=== PATIENT | female | born 1965 | race Hispanic/Latino ===

== ENCOUNTER 2017-02-25 07:30 | Day surgery (SDC) | payer BC ==
[2017-02-22 13:32] VITALS: BMI 27.1
[2017-02-25 09:04] LABS: BASO # 0.03 K/mm3 (0.0-2.0); BASO % 0.5 % (0.0-3.0); EOS # 0.1 (0.0-0.7); EOS % 1.9 % (1.5-5.0); GRAN # 3.32 (1.4-6.5); GRAN % 53.6 % (50.0-68.0); HEMATOCRIT 45.2 % (36.0-48.0); LYMPH # 2.1 (1.2-3.4); LYMPH % 34.1 % (22.0-35.0); MEAN CELL VOLUME 92.1 fl (80.0-105.0); MEAN CORPUSCULAR HGB CONC 33.6 g/dl (31.0-37.0); MEAN PLATELET VOLUME 9.4 fl (7.0-11.0); MONO # 0.6 (0.1-0.6); MONO % 9.9 % (1.0-6.0); RED CELL DISTRIBUTION WIDTH 13.8 % (11.5-14.5); WHITE BLOOD COUNT 6.2 10^3/ul (4.5-11.0)
[2017-02-25 09:08] LABS: BLOOD UREA NITROGEN 11 mg/dL (7-21); CALCIUM 10.3 mg/dL (8.4-10.5); CARBON DIOXIDE 32 mmol/L (21-33); CHLORIDE 102 mmol/L (98-107); CHOLESTEROL 240 mg/dL (130-200); GFR AFRICAN-AMERICAN > 60; GLUCOSE,RANDOM 94 mg/dL (70-110); POTASSIUM 4.4 mmol/L (3.6-5.0); SODIUM 143 mmol/L (132-148)
[2017-02-25 09:52] LABS: INR 0.93 (0.93-1.08); PARTIAL THROMBOPLASTIN TIME 28.4 Seconds (23.7-30.8)
[2017-02-25] MEDS ORDERED: Lidocaine 2% Inj (20ml) ONE (10:46)
[2017-02-25] MEDS ORDERED: Midazolam 2 MG/2 ML VIAL ONE ×2 (10:49→10:59)
[2017-02-25] MEDS ORDERED: Naloxone 0.4 mg/ml Inj (Adult) ONE (11:22)
[2017-02-25] MEDS ORDERED: Sodium Chloride 0.9% 1,000 ML IV SCH (11:45)
[2017-02-25 12:44] VITALS: BP 124/79; PULSE 102; RESP 18; TEMP 97.8; O2SAT 95
--- NOTE | 2017-02-25 16:37 | CARDCATH ---
PROCEDURE DATE: 02/25/2017 HISTORY: The patient is a 51-year-old woman who was found to be in CHF. 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 She was found to have a dilated cardiomyopathy as well as pulmonary hypertension on echocardiogram. Because of this, cardiac catheterization was recommended. PROCEDURE: Right and left heart catheterization with coronary angiography, left ventriculogram with supra-aortic valvular injection. There were no complications. The right femoral artery was cannulated with 6-[place] sheath. The right femoral vein was cannulated with 7-[place] sheath. FINDINGS ON CATHETERIZATION: Included: 1. Initial hemodynamic data which revealed a right atrial pressure of 4 mmHg. 2. Pulmonary artery pressures were 31/5 mmHg. 3. Pulmonary artery pressures were 28/14 mmHg with a mean of 18 mmHg, mean pulmonary capillary wedge pressure was 11 mmHg. Angiographic studies included supraaortic valvular injection which revealed 1+ aortic insufficiency. The left ventricle was found to be dilated and diffusely hypokinetic with an EF of approximately 20%. Her coronary anatomy revealed left main artery that was unremarkable. The LAD revealed mild intimal irregularities with a distal portion that was intramyocardial. Diagonal vessels revealed intimal irregularities without significant stenosis. The circumflex artery revealed diffuse intimal irregularities without critical lesions. The right coronary artery selectively cannulized and found to be a dominant vessel. The RCA revealed intimal irregularities with a 40% stenosis in the proximal portion. Angio-Seal was used to close the femoral artery site. The patient tolerated the procedure well. In summary, the procedure revealed: 1. A dilated cardiomyopathy with an EF of 20%. 2. 1+ aortic insufficiency. 3. Mild pulmonary retention. 4. Nonobstructive CAD with intramyocardial portion of the distal LAD noted. Given these findings, the patient's treatment will be BRIDGETTE inhibitors, beta blockers, diuretics as needed. We will discussed with the patient about risks and benefits of a possible intramyocardial biopsy. Shakir Aguilar MD
--- NOTE | 2017-02-26 09:44 | CARD ---
APPROVED REPORT EKG Measurement Heart [id number] [place] [id number] <Conclusion> Normal sinus rhythm Minimal voltage criteria for LVH, may be normal variant Nonspecific T wave abnormality Abnormal ECG
== END 2017-02-25 13:19 | disposition short-term general hospital (02) ==
LOC: CATH 07:30
PROVIDERS: ATTEND Internal Medicine Cardiovascular Disease
DX: I42.0 Dilated cardiomyopathy (principal); I27.21 Secondary pulmonary arterial hypertension; I50.9 Heart failure, unspecified; I35.1 Nonrheumatic aortic (valve) insufficiency; I25.10 Atherosclerotic heart disease of native coronary artery without angina pectoris
CPT/HCPCS: 36415; 80048; 80061; 85025; 85610; 85730; 86850; 86900; 93005; 93460; 99152; C1760; C1769; C1894; C2629; J1644; J2250; J2310; J3010; J7040 ×2

== ENCOUNTER 2017-02-25 13:19 | Inpatient (IN) | payer BC ==
[2017-02-25 13:22] VITALS: BMI 27.1
[2017-02-25] MEDS ORDERED: DOBUTamine 500mg/250ml D5W 500 MG/250 ML BAG IV PRN ×2 (13:31→17:02)
--- NOTE | 2017-02-25 13:48 | ED PDOC ---
Arrival/HPI - General Chief Complaint: Shortness Of Breath Time Seen by Provider: 02/25/17 13:30 Historian: Patient - History of Present Illness Narrative History of Present Illness (Text): 02/25/17 13:58 A 51 year old female was sent to the emergency department by Dr. Aguilar after catheterization lab for admission to be on Dobutamine drip. Dr. Aguilar called and asked to place patient on Dobutamine drip 5 mcg/kg/min. Patient reports she has dyspnea on exertion for a long time. Patient states she has cardiomyopathy, likely secondary to chemotherapy treatments. Patient denies any other complaints at this time. Time/Duration: Prior to Arrival Symptom Onset: Sudden Symptom Course: Unchanged Modifying Factors (Text): none Past Medical History - Provider Review Nursing Documentation Reviewed: Yes - Infectious Disease Hx of Infectious Diseases: None - Tetanus Immunization Tetanus Immunization: Unknown - Cardiac Hx Pacemaker: No - Pulmonary Hx Respiratory Disorders: Yes Hx Pneumonia: Yes (09-16-14) - Neurological Hx Paralysis: No - HEENT Hx HEENT Disorder: (WEARS RX GLASSES FOR READING) - Renal Hx Renal Disorder: No - Endocrine/Metabolic Hx Endocrine Disorders: No - Hematological/Oncological Hx Blood Transfusions: Yes Hx Blood Transfusion Reaction: No - Integumentary Hx Dermatological Disorder: No - Musculoskeletal/Rheumatological Hx Musculoskeletal Disorders: No - Gastrointestinal Hx Gastrointestinal Disorders: Yes (constipation) - Genitourinary/Gynecological Hx Genitourinary Disorders: Yes - Psychiatric Hx Emotional Abuse: No Hx Physical Abuse: No Hx Substance Use: No - Past Surgical History Past Surgical History: Non-Contributing - Surgical History Hx Cardiac Catheterization: Yes (02/25/2017) Other/Comment: R chest port - Anesthesia Hx Anesthesia: Yes Hx Anesthesia Reactions: No Hx Malignant Hyperthermia: No - Suicidal Assessment Feels Threatened In Home Enviroment: No Family/Social History - Physician Review Nursing Documentation Reviewed: Yes Family/Social History: No Known Family HX Smoking Status: Former Smoker Hx Alcohol Use: Yes (SOCIALLY) Hx Substance Use: No Allergies/Home Meds Allergies/Adverse Reactions: Allergies sulfamethoxazole [From Bactrim] Allergy (Severe, Verified 02/22/17 13:33) RASH trimethoprim [From Bactrim] Allergy (Severe, Verified 02/22/17 13:33) RASH Home Medications: Home Meds Medication Instructions Recorded Confirmed Aspirin [Ecotrin] 81 mg PO DAILY 02/22/17 02/25/17 Gabapentin [Neurontin] 600 mg PO QPM 02/22/17 02/25/17 Review of Systems - Physician Review All systems were reviewed & negative as marked: Yes Physical Exam - Physical Exam Narrative Physical Exam (Text): 02/25/17 13:40 - Review of Systems Constitutional: Normal. absent: Fatigue, Weight Change, Fevers Eyes: Normal ENT: denies sore throat, denies tristhmus Respiratory: Normal. absent: SOB, Cough, Sputum Cardiovascular: dyspnea on exertion absent: Chest Pain, Palpitations, Syncope Gastrointestinal: Normal. absent: Abdominal Pain, Diarrhea, Nausea, Vomiting Genitourinary: Normal. absent: Dysuria, Frequency, Hematuria Musculoskeletal: Normal. absent: Arthralgias, Back Pain, Neck Pain Skin: no rashes, no erythema Neurological: absent: Focal Weakness Endocrine: Normal Hemo/Lymphatic: Normal Psychiatric: No suicidal or homicidal ideations Physical exam Patient appears age appropriate in no distress, speaking full sentences without difficulty - Systems Exam Head: Present: Atraumatic, Normocephalic Pupils: Present: PERRL Extroacular Muscles: Present: EOMI Conjunctiva: Present: Normal Mouth: Present: Moist Mucous Membranes Neck: Present: Normal Range of Motion. No: MIDLINE TENDERNESS, Paraspinal Tenderness Respiratory/Chest: Present: Clear to Auscultation, Good Air Exchange. No: Respiratory Distress, Accessory Muscle Use, Tachypneic Cardiovascular: Present: Regular Rate and Rhythm, Normal S1, S2, Peripheal Pulses Present. No: Murmurs Abdomen: Present: Normal Bowel Sounds. No: Tenderness, Distention, Peritoneal Signs, Rebound, Guarding Back: Present: Normal Inspection. No: Midline Tenderness, Paraspinal Tenderness Upper Extremity: Present: Normal Inspection. No: Cyanosis, Edema Lower Extremity: Present: Normal Inspection. No: Edema Neurological: Present: GCS=15, Speech Normal, cranial nerves II through XII fully intact with no cerebellar abnormality, neurosensory fully intact. No focal neurological deficits. Skin: Present: Warm, Dry, Normal Color. No: Rashes Lymphatic: Present: OX3, NI, NC Psychiatric: Present: Alert, Oriented x 3, Normal Insight, Normal Concentration Vital Signs Reviewed: Yes Vital Signs Temp Pulse Resp BP Pulse Ox 02/25/17 17:15 112 H 18 88/62 L 95 02/25/17 16:40 116 H 17 83/47 L 97 02/25/17 14:07 17 98 02/25/17 14:06 105 H 111/73 02/25/17 13:39 98.4 F 116 H 24 106/89 97 Temperature: Afebrile Blood Pressure: Normal Pulse: Tachycardic Respiratory Rate: Normal Appearance: Positive for: Well-Appearing, Non-Toxic, Comfortable Pain Distress: None Mental Status: Positive for: Alert and Oriented X 3 Medical Decision Making ED Course and Treatment: 02/25/17 13:40 Impression: A 51 year old female with dyspnea on exertion. Plan: -- chest xray -- labs -- Dobutamine -- Reassess and disposition Prior Visits: Notes and results from previous visits were reviewed. Patient was last seen in the emergency department on 09/16/14 for evaluation of cough, fever, chills and nasal congestion. Progress Notes: Case discussed with patient's primary Dr. Campos, who asked to admit to Dr. Aguilar or Dr. Aguilar's service. 02/25/17 14:[address] Aguilar in detail, accepted admission to her service. Patient is aware and in agreement with plan to be admitted to hospital. 02/25/17 15:35 Patients blood pressure decreased, pt on Dobutamine. Case discussed with Dr. Aguilar, who states to start patient on 200 cc boluses normal saline. 02/25/17 17:05 600ml NS given total. pt's lungs clear to ausc and pt denies complaints gerald Aguilar again, states to place pt on dopamine drip as well, and to admit to the MICU 02/25/17 17:08 gerald Bui in detail, states he will see pt 02/25/17 17:52 seen by apparel trimmings sales representative, accepted to the MICU pt aware of and agrees with plan denies complaints at this time - Lab Interpretations I have reviewed the lab results: Yes - RAD Interpretation Radiology Orders: 02/25/17 13:31 CHEST PORTABLE [RAD] Stat - Medication Orders Current Medication Orders: Dopamine HCl 800 mg/ Dextrose 270 mls @ 2.9 mls/hr IV .Q24H PRN; Protocol; 2 MCG/KG/MIN PRN Reason: TITRATE PER MD ORDER Last Admin: 02/25/17 17:33 Dose: 2 mcg/kg/min, 2.9 mls/hr Dobutamine HCl/Dextrose (Dobutamine/Dextrose 5% 500mg/250ml) 500 mg in 250 mls @ 10.751 mls/hr IV .[id number] PRN; Protocol; 5 MCG/KG/MIN PRN Reason: TITRATE PER PROTOCOL Discontinued Medications Dobutamine HCl/Dextrose (Dobutamine/Dextrose 5% 500mg/250ml) 500 mg in 250 mls @ 10.751 mls/hr IV .[id number] PRN; Protocol; 5 MCG/KG/MIN PRN Reason: TITRATE PER PROTOCOL Last Admin: 02/25/17 14:06 Dose: 10.751 mls/hr eMAR Start Stop Document 02/25/17 14:06 MR (Rec: 02/25/17 14:07 [id number]) Intravenous Solution Start Date 02/25/17 Start Time 14:06 MAR Pulse and Blood Pressure Document 02/25/17 14:06 MR (Rec: 02/25/17 14:07 [id number]) Pulse Pulse Rate (60-90 beats/min) 105 Blood Pressure Blood Pressure (100/60-150/90 mm Hg) 111/73 Sodium Chloride (Sodium Chloride 0.9%) 200 mls @ 1,000 mls/hr IV .Q12M STA Stop: 02/25/17 15:45 Last Admin: 02/25/17 16:00 Dose: 1,000 mls/hr eMAR Start Stop Document 02/25/17 16:00 MR (Rec: 02/25/17 16:31 [id number]) Intravenous Solution Start Date 02/25/17 Start Time 16:00 End Date 02/25/17 End time 16:12 Total Infusion Time 12 - Scribe Statement The provider has reviewed the documentation as recorded by the Edy lFynn Provider Scribe Attestation: All medical record entries made by the Scribe were at my direction and personally dictated by me. I have reviewed the chart and agree that the record accurately reflects my personal performance of the history, physical exam, medical decision making, and the department course for this patient. I have also personally directed, reviewed, and agree with the discharge instructions and disposition. Disposition/Present on Arrival - Present on Arrival Any Indicators Present on Arrival: No History of DVT/PE: No History of Uncontrolled Diabetes: No Urinary Catheter: No History of Decub. Ulcer: No History Surgical Site Infection Following: None - Disposition Have Diagnosis and Disposition been Completed?: Yes Diagnosis: Dyspnea Disposition: HOSPITALIZED Disposition Time: 13:47 Patient Plan: Admission Patient Problems: Current Active Problems Problem Status Onset Dyspnea Acute Condition: FAIR
--- NOTE | 2017-02-25 15:08 | RAD ---
HISTORY: cp COMPARISON: 03/14/2015 FINDINGS: LUNGS: There is moderate to severe vascular congestion PLEURA: No significant pleural effusion identified, no pneumothorax apparent. CARDIOVASCULAR: Normal. OSSEOUS STRUCTURES: No significant abnormalities. VISUALIZED UPPER ABDOMEN: Normal. OTHER FINDINGS: None. IMPRESSION: Moderate to severe vascular congestion
[2017-02-25] MEDS ORDERED: Sodium Chloride 0.9% 200 ML IV STA (15:34)
--- NOTE | 2017-02-25 18:25 | CP.PCM.CON ---
History of Present Illness - History of Present Illness History of Present Illness: CRITICAL CARE PROGRESS NOTE HPI: Patient is 51yo female with PMhx of Hodgkins Lymphoma, diagnosed 2010, on chemo therapy, subsequently BMT 2011, only on Neurontin, ASA at home presented to Dr Woodward office with complaints of progressive SOB for the last 1-2 weeks, worsened on exertion. Pt denies fever, chills, cough, chest pain, palpitations, LE edema, orthopnea, LAZO, dizziness. PAtient reportd dyspnea on exertion, limited to 1-2 blocks of ambulation. No oher constitutional symptoms. Cardiac cath, Left and Right, done this morning, which showed normal coronaries , EF 15-20%, PCWP 11, elevated right sided pressures. Patient sent to the ER after cardiac cath for dobutamine drip. Currently on Dobutamine at 4.5mcg/kg/min , SBP ranging 80-95, HR 110s sinus. PMHx: Hodgkins Lymphoma, s/p BMT 2011 PSHx: as above Allergies: NKDA Meds: as per EMR FHx: Father-CHF, at age 91 ROS: as above Review of Systems - Review of Systems Review of Systems: as per HPI Past Patient History - Infectious Disease Hx of Infectious Diseases: None - Tetanus Immunizations Tetanus Immunization: Unknown - Past Social History Smoking Status: Former Smoker - CARDIAC Hx Pacemaker: No - PULMONARY Hx Respiratory Disorders: Yes Hx Pneumonia: Yes (09-16-14) - NEUROLOGICAL Hx Paralysis: No - HEENT Hx HEENT Problems: (WEARS RX GLASSES FOR READING) - RENAL Hx Chronic Kidney Disease: No - ENDOCRINE/METABOLIC Hx Endocrine Disorders: No - HEMATOLOGICAL/ONCOLOGICAL Hx Blood Transfusions: Yes Hx Blood Transfusion Reaction: No - INTEGUMENTARY Hx Dermatological Problems: No - MUSCULOSKELETAL/RHEUMATOLOGICAL Hx Musculoskeletal Disorders: No - GASTROINTESTINAL Hx Gastrointestinal Disorders: Yes (constipation) - GENITOURINARY/GYNECOLOGICAL Hx Genitourinary Disorders: Yes - PSYCHIATRIC Hx Emotional Abuse: No Hx Physical Abuse: No Hx Substance Use: No - SURGICAL HISTORY Hx Cardiac Catheterization: Yes (02/25/2017) Other/Comment: R chest port - ANESTHESIA Hx Anesthesia: Yes Hx Anesthesia Reactions: No Hx Malignant Hyperthermia: No Meds Allergies/Adverse Reactions: Allergies Allergy/AdvReac Type Severity Reaction Status Date / Time sulfamethoxazole Allergy Severe RASH Verified 02/22/17 13:33 [From Bactrim] trimethoprim [From Bactrim] Allergy Severe RASH Verified 02/22/17 13:33 - Medications Medications: Current Medications Dopamine HCl 800 mg/ Dextrose 270 mls @ 2.9 mls/hr IV .Q24H PRN; Protocol; 2 MCG/KG/MIN PRN Reason: TITRATE PER MD ORDER Last Admin: 02/25/17 17:33 Dose: 2 mcg/kg/min, 2.9 mls/hr Dobutamine HCl/Dextrose (Dobutamine/Dextrose 5% 500mg/250ml) 500 mg in 250 mls @ 10.751 mls/hr IV .[id number] PRN; Protocol; 5 MCG/KG/MIN PRN Reason: TITRATE PER PROTOCOL Physical Exam - Constitutional Appears: Well, Non-toxic - Head Exam Head Exam: ATRAUMATIC - Eye Exam Eye Exam: EOMI, Normal appearance - ENT Exam ENT Exam: Mucous Membranes Moist - Neck Exam Neck exam: Positive for: Normal Inspection - Respiratory Exam Respiratory Exam: NORMAL BREATHING PATTERN Additional comments: bibasilar crackles - Cardiovascular Exam Cardiovascular Exam: Tachycardia, REGULAR RHYTHM, JVD, +S1, +S2 - GI/Abdominal Exam GI & Abdominal Exam: Normal Bowel Sounds, Soft - Extremities Exam Extremities exam: Positive for: normal inspection - Neurological Exam Neurological exam: Alert, CN II-XII Intact, Oriented x3 - Psychiatric Exam Psychiatric exam: Anxious - Skin Skin Exam: Normal Color Results - Vital Signs Recent Vital Signs: Last Vital Signs Temp 98.4 F 02/25/17 13:39 Pulse 112 H 02/25/17 17:15 Resp 18 02/25/17 17:15 BP 88/62 L 02/25/17 17:15 Pulse Ox 95 02/25/17 17:15 - EKG Data EKG Interpreted by: Myself - Imaging and Cardiology Chest x-ray Status: Image reviewed by me, Report reviewed by me Assessment & Plan - Assessment and Plan (Free Text) Assessment: 51yo female Hx of Hodgkins Lymphoma, s/p BMT 2011 a/w shock Shock, likely cardiogenic CHF, EF 15-20% History of Hodgkins Lymphoma, s/p BMT 2011 - currently afebrile, SBP ranging 80-90s on Dobutamine 5mcg/kg/min, HR 110s, sinus, AAOx3, NAD, comfortable sitting in bed, with no complaints - on exam has bibasilar crackles, with mild JVD - EKG: NSR, with Qwaves in anterior leads, LVH - ECHO done on 02/22/17, with EF 15-20% - pre-cardiac cath labs done today, unremarkable - s/p cardiac cath today, which showed non-obstructive coronaries, LV dilated, hypokinetic, EF 15-20% Recommend: - cont with supp o2 as needed - cuevas culture, including urine culture, blood culture, sputum culture - would hold off antibiotics for now, wbc wnl, afebrile, no focal consolidation on CXR, UA pending, denies n/v/d - cont with Dobutamine drip, titrate to MAP 65, may need to add second vasopressor - repeat all labs, including CBC, BMP, Lactate - check Ddimer, and LE duplex - repeat bedside ECHO - monitor HH - low salt diet - GI ppx - DVT ppx critical care time: 40 minutes
[2017-02-25] MEDS ORDERED: NOREPINEPHRINE BIT/0.9 % NACL 4 MG/250 ML BAG IV ONE (18:46)
[2017-02-25] MEDS: DOBUTamine 500mg/250ml D5W 500 MG/250 ML BAG IV PRN (19:00)
--- NOTE | 2017-02-25 20:15 | HP ---
HISTORY OF PRESENT ILLNESS: The patient is a 51 years old known to me from office practice. She was feeling weak, dizzy, and shortness of breath. She went to see Dr. Campos, who has been her oncologist for last 30 years, who felt that her heart has to be checked. He referred her to Dr. Aguilar, who saw the patient last week and scheduled her for cardiac cath since she has poor ejection fraction upon echocardiogram. So, the patient was brought to produce laborer, had cardiac cath done. According to Dr. Aguilar, her coronaries are clear; however, she has poor LV function and need Milrinone drip, so she was admitted for further management. Unfortunately, this 51 years old pleasant female, but she was diagnosed in 2010 with Hodgkin's lymphoma. She received physical therapy and she has bone marrow transplant in 2011. She also carried diagnosis of positive hepatitis C and recently she finished course of treatment with in [place] for hepatitis C. The patient states she does not have any fever or chills. No chest pain. Does complain of feeling weak, tired, short of breath, and feeling dizzy. She can hardly walk to block and half and get short of breath. ALLERGIES: SHE IS ALLERGIC TO [employer]. MEDICATION AT HOME: She is on Neurontin 600 at nighttime, aspirin 81 daily. FAMILY HISTORY: Significant for mother having anxiety disorder, COPD, and pulmonary hypertension. Father of congestive heart failure. SOCIAL HISTORY: She recently got . She has one son, who lives with her. She social drinks here there. She used to be heavy smoker, quit in 2011 and she still smokes occasionally when she is very anxious. REVIEW OF SYSTEMS: Significant for being tired, short of breath. PHYSICAL EXAMINATION: GENERAL: She is awake, alert, oriented, communicative. VITAL SIGNS: She is afebrile, pulse 160, respirations 24, blood pressure 106/89. LUNGS: Bilateral fair airflow, decreased at bases. HEART: S1 and S2 audible. ABDOMEN: Soft, nontender. No rebound. No guarding. NEUROLOGIC: She is awake and alert; able to communicate. Moves all extremities. LABORATORY EXAM: Has been ordered for tomorrow morning. ASSESSMENT AND PLAN: 1. Dilated cardiomyopathy, etiology unclear, probably secondary to chemo and radiation, I cannot rule out viral etiology. 2. History of lymphoma. 3. Neuropathy. 4. Anxiety disorder. PLAN: The patient has been started on dobutamine drip. She will be started on aspirin 81 daily, gabapentin 600 at nighttime, add Xanax. We will follow up her electrolyte. Dr. Shakir Aguilar and Dr. Campos has been consulted. Kelly Aguilar MD
[2017-02-25 20:24] LABS: BASO # 0.01 K/mm3 (0.0-2.0); BASO % 0.2 % (0.0-3.0); EOS # 0.1 (0.0-0.7); GRAN # 3.14 (1.4-6.5); HEMATOCRIT 38.9 % (36.0-48.0); LYMPH # 2.5 (1.2-3.4); LYMPH % 40.3 % (22.0-35.0); MEAN CELL VOLUME 91.7 fl (80.0-105.0); MEAN CORPUSCULAR HEMOGLOBIN 30.9 pg (25.0-35.0); MEAN CORPUSCULAR HGB CONC 33.7 g/dl (31.0-37.0); MEAN PLATELET VOLUME 9.4 fl (7.0-11.0); MONO # 0.5 (0.1-0.6); MONO % 8.5 % (1.0-6.0); RED CELL DISTRIBUTION WIDTH 13.8 % (11.5-14.5); WHITE BLOOD COUNT 6.3 10^3/ul (4.5-11.0)
[2017-02-25 20:40] LABS: ALB/GLOB RATIO 1.3 (1.1-1.8); ALKALINE PHOSPHATASE 89 U/L (38-126); ALT/SGPT 30 U/L (7-56); AST/SGOT 30 U/L (14-36); BILIRUBIN,TOTAL 0.6 mg/dL (0.2-1.3); BLOOD UREA NITROGEN 11 mg/dL (7-21); CARBON DIOXIDE 28 mmol/L (21-33); CHLORIDE 102 mmol/L (98-107); GFR AFRICAN-AMERICAN > 60; GLUCOSE,RANDOM 145 mg/dL (70-110); MAGNESIUM 1.8 mg/dL (1.7-2.2); PHOSPHOROUS 4.4 mg/dL (2.5-4.5); POTASSIUM 3.5 mmol/L (3.6-5.0); SODIUM 139 mmol/L (132-148); TOTAL PROTEIN 6.1 g/dL (5.8-8.3)
[2017-02-25] MEDS ORDERED: POLYETHYLENE GLYCOL 3350 17 GM/Dose PACKET PO ONE (23:00)
[2017-02-26] MEDS ORDERED: NOREPINEPHRINE BIT/0.9 % NACL 4 MG/250 ML BAG IV PRN (00:21)
[2017-02-26 06:25] LABS: BASO # 0.01 K/mm3 (0.0-2.0); BASO % 0.1 % (0.0-3.0); EOS # 0.1 (0.0-0.7); EOS % 0.8 % (1.5-5.0); GRAN # 3.45 (1.4-6.5); GRAN % 46.2 % (50.0-68.0); HEMATOCRIT 36.1 % (36.0-48.0); LYMPH % 40.8 % (22.0-35.0); MEAN CELL VOLUME 93.3 fl (80.0-105.0); MEAN CORPUSCULAR HEMOGLOBIN 30.5 pg (25.0-35.0); MEAN CORPUSCULAR HGB CONC 32.7 g/dl (31.0-37.0); MEAN PLATELET VOLUME 9.5 fl (7.0-11.0); MONO # 0.9 (0.1-0.6); MONO % 12.1 % (1.0-6.0); RED CELL DISTRIBUTION WIDTH 14.1 % (11.5-14.5); WHITE BLOOD COUNT 7.5 10^3/ul (4.5-11.0)
[2017-02-26 07:12] LABS: ALB/GLOB RATIO 1.1 (1.1-1.8); ALKALINE PHOSPHATASE 84 U/L (38-126); ALT/SGPT 23 U/L (7-56); AST/SGOT 28 U/L (14-36); BILIRUBIN,TOTAL 0.5 mg/dL (0.2-1.3); BLOOD UREA NITROGEN 13 mg/dL (7-21); CALCIUM 8.5 mg/dL (8.4-10.5); CARBON DIOXIDE 29 mmol/L (21-33); CHLORIDE 105 mmol/L (98-107); GFR AFRICAN-AMERICAN > 60; GLUCOSE,RANDOM 100 mg/dL (70-110); MAGNESIUM 1.9 mg/dL (1.7-2.2); PHOSPHOROUS 4.5 mg/dL (2.5-4.5); POTASSIUM 4.1 mmol/L (3.6-5.0); SODIUM 140 mmol/L (132-148); TOTAL PROTEIN 5.8 g/dL (5.8-8.3)
--- NOTE | 2017-02-26 09:44 | CARD ---
APPROVED REPORT EKG Measurement Heart [id number] [place] [id number] <Conclusion> Sinus tachycardia Minimal voltage criteria for LVH, may be normal variant Cannot rule out Anterior infarct, age undetermined T wave abnormality, consider lateral ischemia Abnormal ECG
--- NOTE | 2017-02-26 09:49 | US ---
HISTORY: Leg pain and swelling. Evaluate for DVT PHYSICIAN(S): Shakir Erwin MD. TECHNIQUE: Duplex sonography and color-flow Doppler with graded compression were used to evaluate the deep venous systems of both lower extremities. FINDINGS: The visualized deep venous systems of both lower extremities are sonographically normal and compressible. Normal wave forms and augmentation are seen. There is no sonographic evidence for deep venous thrombosis in the visualized segments of both lower extremities. IMPRESSION: No sonographic evidence for deep venous thrombosis in the visualized segments of both lower extremities.
[2017-02-26] MEDS: POLYETHYLENE GLYCOL 3350 17 GM/Dose PACKET PO SCH (12:01)
--- NOTE | 2017-02-26 12:12 | PN ---
DATE: 02/26/2017 SUBJECTIVE: The patient is seen and examined at bedside. She is comfortable. She talks full sentences. She is not in respiratory or otherwise distress. She reports that at baseline her blood pressure is low around 80s. She is currently on norepinephrine 5 mcg/kg/minute and dobutamine 5 mcg/kg/minute. PHYSICAL EXAMINATION: VITAL SIGNS: Heart rate 116, blood pressure 85/49, respiratory rate 16, oxygen saturation 97 on room air. HEENT: Head and neck atraumatic. LUNGS: Clear to auscultation bilaterally. Decreased breath sounds, right more than left (on left-sided ultrasound there is a moderate pleural effusion present). HEART: Regular rate and rhythm. S1 and S2 normal. ABDOMEN: Soft, nontender, nondistended. MUSCULOSKELETAL: Trace bilateral pedal and ankle edema. NEUROLOGIC: The patient moves all extremities spontaneously. SKIN: Moist. PSYCHIATRIC: The patient is alert and oriented x3. LABORATORY DATA: Sodium 140, potassium 4.1, chloride 105, carbon dioxide 49, BUN 13, creatinine 0.8, glucose 100, lactic acid 1, AST 28, ALT 23, albumin 3.1. WBC 7.5, hemoglobin 11.8, platelet count 120. D-dimer 2.64 (right ventriculography was done; however, now mentioning of pulmonary embolism was made in the report and in the cardiology sign out. Venous Doppler of the lower extremities is pending. MEDICATIONS: Xanax, aspirin, dobutamine, Lasix 20 mg IV daily, Neurontin, norepinephrine, MiraLax. ASSESSMENT AND PLAN: This is a 51-year-old lady who was admitted to ICU with acute heart failure with biventricular involvement. The patient does have right ventricular failure secondary to left ventricular failure with LV ejection fraction of 15-20%. She currently is on dobutamine and norepinephrine. I will be careful with fluid and would avoid IV fluid at the present time, in fact I would continue with diuresis. The patient is afebrile and does not have leukocytosis. She looks fairly comfortable. I would avoid empiric antibiotics and leave septic workup up to the discretion of the primary medical doctor. The bigger question that I will discuss with cardiology whether or not the patient would be a candidate for cardiac transplant evaluation. Etiology of biventricular failure may or may not be related to remote exposure to chemotherapy and radiation therapy for her Hodgkin's lymphoma. We will continue to target euvolemia, euglycemia, normothermia and oxygen saturation more than 90%. Continue with conservative fluid management and the patient is on Lasix 20 mg IV daily. Even though, there is a moderate pleural effusion on the right side, the patient is not in respiratory distress and does not have overt gas exchange abnormalities. Thus, I would avoid thoracentesis at present time and proceed with diuresis only at this time. We will continue with deep venous thrombosis and gastrointestinal prophylaxis. Addendum: Discussed with Dr. Campos (Hem/Onc)-->PET scan done 3 months ago, only faint uptake in mediastinal area, which was doubtful for recurrent lymphoma. If pleural effuison wont resolve with diuresis soon, would consider thoracenthesis for both theraeutic and diagnostic purposes (CHF vs lymphoma). Discussed case with Dr. Aguilar--once a bit more stable, patient will be referred for eval for candidacy for heart transplant. Levophed is off, BP 89/39--patient reports that this is her baseline BP, dobutamine is still going ccm time 40 min Reynaldo Painting MD MTDDelia
[2017-02-26] MEDS: DOBUTamine 500mg/250ml D5W 500 MG/250 ML BAG IV PRN (12:31)
--- NOTE | 2017-02-26 12:55 | PN ---
DATE: SUBJECTIVE: The patient is a 51 years old. Seen and examined, sitting in the chair. Very worried and anxious about her new situation and had lot of questions that were answered and states she feels okay now, but feels weak and dizzy when she walks. PHYSICAL EXAMINATION: VITAL SIGNS: She is afebrile. Pulse 116, respirations 20, and blood pressure 93/66. LUNGS: Bilateral fair airflow, decreased at bases. HEART: S1 and S2 audible. ABDOMEN: Soft, nontender. No rebound. No guarding. NEUROLOGICAL: The patient is awake, alert, and communicative. LABORATORY DATA: WBC 7.5, hemoglobin 11.8, hematocrit 36, and platelet of 120. D-dimer 2.6. Chemistry sodium 140, potassium 4.1, chloride 105, CO2 29, BUN 13, and creatinine 0.8. Blood sugar of 100. BNP is 2220. Bilateral leg Doppler is negative for DVT. ASSESSMENT: 1. Cardiomyopathy with poor left ventricular function and ejection fraction of 15% to 20%. 2. History of lymphoma and bone marrow transplant. 3. History of hepatitis C status post antiviral treatment that she just finished two weeks ago. PLAN: The patient is currently on dobutamine and/or epinephrine. Continue her on aspirin. She is on DVT prophylaxis. She is getting IV diuretics and increased her Xanax to 0.25 mg twice a day scheduled and should be p.r.n. Followup for electrolyte and reevaluate. Kelly Aguilar MD
[2017-02-26] MEDS: Digoxin 250 mcg (0.25 mg) Tab PO SCH (14:19)
[2017-02-26] MEDS ORDERED: Docusate-Senna 50 mg-8.6 mg Tab PO ONE (21:35)
--- NOTE | 2017-02-26 21:35 | CON ---
DATE: 02/26/2017 HISTORY OF PRESENT ILLNESS: The patient is a 51-year-old woman who presents with 1 week of shortness of breath. She is found to have a severe dilated cardiomyopathy. Catheterization yesterday revealed a nonobstructive CAD. The etiology of her cardiomyopathy is still unclear. The patient was placed on IV dobutamine given her marked dyspnea and CHF symptoms. She is currently in the unit. Her symptoms are better. PAST MEDICAL HISTORY: Includes history of Hodgkin's disease x2. She was also recently treated for hepatitis C over the course of the month. SOCIAL HISTORY: The patient does not smoke. REVIEW OF SYSTEMS: A 14-point review of systems is reviewed in detail. Her CHF symptoms are much improved. PHYSICAL EXAMINATION: VITAL SIGNS: Blood pressure 100 systolic, heart rate is 100-110, sinus tachycardia. NECK: Negative JVD. LUNGS: Without rales. HEART: S1, S2. EXTREMITIES: Without edema. LABORATORY DATA: Hemoglobin is 11.8. Chemistries, BUN and creatinine unremarkable. The ProBNP is 2220. IMPRESSION 1. Improvement of congestive heart failure on IV dobutamine. 2. Dilated cardiomyopathy. 3. Improvement of dyspnea. 4. History of hepatitis C 5. History of Hodgkin disease. Given these findings, we will continue her on IV dobutamine for 24 hours. If the patient is stable, we will discontinue the dobutamine. I have discussed this with the heart failure program at [facility]. We will send her there for an MRI to evaluate her cardiomyopathy. There is potential for myocardial biopsy to rule out fulminant viral myocarditis. Shakir Aguilar MD
--- NOTE | 2017-02-27 01:10 | CARD ---
APPROVED REPORT EKG Measurement Heart [id number] <Conclusion> Sinus tachycardia Minimal voltage criteria for LVH, may be normal variant Nonspecific T wave abnormality Abnormal ECG
--- NOTE | 2017-02-27 07:48 | CP.PCM.CON ---
History of Present Illness - History of Present Illness History of Present Illness: Heme/Onc Consult Note for Dr. Campos's service HPI: Patient is 51yo female with past medical history of Hodgkins Lymphoma first treated in 1986 with radiation for mediastinal disease and systemic ABVD chemotherapy for six cycles. Following recurrence of her Hodgkins in 1991 she was treated with chemotherapy and autologous BMT. She was well until 2011 when she again had recurrence of her Hodgkins and underwent radiaton as well as allogeneic transplant. Patient had originally reported to Dr. Campos's office complaining of dyspnea on exertion that was effecting her ADL's. She was referred to cardiology, Dr. Aguilar who had ordered an echocardiogram revealing severe LV dysfunction (EF 15-20%) and performed a right and left cardiac catherization which revealed normal coronaries, EF 15-20%, PCWP 11, elevated right sided pressures. She was subsequently sent to the ER after cardiac cath for dobutamine drip. Denies chest pain, palpitations, SOB, abdominal pain, nausea, vomiting. 12point ROS as per HPI above otherwise negative PMHx: Hodgkins Lymphoma, Hepatitis C, Hx of Cdiff PSHx: as stated above Allergies: NKDA Medications: Reviewed and as per chart Family Hx: Father: CHF, at age 91 Social Hx: Former smoker, denies alcohol and illicit drug use Past Patient History - Infectious Disease Hx of Infectious Diseases: None - Tetanus Immunizations Tetanus Immunization: Unknown - Past Social History Smoking Status: Current Some Days Smoker - CARDIAC Hx Pacemaker: No - PULMONARY Hx Respiratory Disorders: Yes Hx Pneumonia: Yes (09-16-14) - NEUROLOGICAL Hx Neurological Disorder: No - HEENT Hx HEENT Problems: (WEARS RX GLASSES FOR READING) - RENAL Hx Chronic Kidney Disease: No - ENDOCRINE/METABOLIC Hx Endocrine Disorders: No - HEMATOLOGICAL/ONCOLOGICAL Hx Blood Disorders: Yes Hx Anemia: Yes (blood transfusion) Hx Cancer: Yes (hodgkin's lymphoma reoccurring for 24 yrs dx 1988) Hx Chemotherapy: Yes (chemo and radiation last given 03/2012) Hx Hepatitis C: Yes Other/Comment: hodgkins lymphoma has recurred 4 times since being dx in 1988 - INTEGUMENTARY Hx Dermatological Problems: No - MUSCULOSKELETAL/RHEUMATOLOGICAL Hx Falls: No - GASTROINTESTINAL Hx Gastrointestinal Disorders: Yes (constipation) - GENITOURINARY/GYNECOLOGICAL Hx Genitourinary Disorders: Yes - PSYCHIATRIC Hx Emotional Abuse: No Hx Physical Abuse: No - SURGICAL HISTORY Hx Cardiac Catheterization: Yes (02/25/2017) Other/Comment: R chest port - ANESTHESIA Hx Anesthesia: Yes Hx Anesthesia Reactions: No Hx Malignant Hyperthermia: No Meds Allergies/Adverse Reactions: Allergies Allergy/AdvReac Type Severity Reaction Status Date / Time sulfamethoxazole Allergy Severe RASH Verified 02/22/17 13:33 [From Bactrim] trimethoprim [From Bactrim] Allergy Severe RASH Verified 02/22/17 13:33 - Medications Medications: Current Medications Acetaminophen (Tylenol 325mg Tab) 650 mg PO Q4H PRN PRN Reason: Pain, moderate (4-7) Last Admin: 02/27/17 04:49 Dose: 650 mg Alprazolam (Xanax) 0.25 mg PO [facility] PRN Reason: Protocol Stop: 03/05/17 22:01 Last Admin: 02/26/17 21:42 Dose: 0.25 mg Aspirin (Ecotrin) 81 mg PO DAILY [facility] Last Admin: 02/26/17 12:00 Dose: 81 mg Carvedilol (Coreg) 3.125 mg PO BID [facility] Digoxin (Lanoxin) 0.25 mg PO 1400 [facility] Last Admin: 02/26/17 14:19 Dose: 0.25 mg Gabapentin (Neurontin) 600 mg PO QPM [facility] PRN Reason: Protocol Last Admin: 02/26/17 19:11 Dose: Not Given Polyethylene Glycol (Miralax) 17 gm PO DAILY [facility] Last Admin: 02/26/17 12:01 Dose: 17 gm Physical Exam - Constitutional Appears: No Acute Distress - Head Exam Head Exam: ATRAUMATIC, NORMAL INSPECTION, NORMOCEPHALIC - Eye Exam Eye Exam: EOMI, PERRL - ENT Exam ENT Exam: Mucous Membranes Moist - Neck Exam Neck exam: Positive for: Normal Inspection - Respiratory Exam Respiratory Exam: Decreased Breath Sounds. absent: Rales, Rhonchi, Wheezes - Cardiovascular Exam Cardiovascular Exam: +S1, +S2. absent: Gallop, Rubs - GI/Abdominal Exam GI & Abdominal Exam: Soft. absent: Distended, Firm, Guarding, Rebound, Tenderness - Neurological Exam Neurological exam: Alert, CN II-XII Intact, Oriented x3 - Psychiatric Exam Psychiatric exam: Normal Affect, Normal Mood - Skin Skin Exam: Dry, Intact, Normal Color, Warm Results - Vital Signs Recent Vital Signs: Last Vital Signs Temp 98.1 F 02/26/17 00:00 Pulse 113 H 02/27/17 06:10 Resp 17 02/27/17 06:10 BP 109/52 L 02/27/17 05:00 Pulse Ox 97 02/26/17 00:20 - Labs Result Diagrams: 02/26/17 06:14 02/26/17 06:14 Labs: Laboratory Results - last 24 hr 02/26/17 06:30 NT-Pro-B Natriuret Pep 2220 H Assessment & Plan - Assessment and Plan (Free Text) Plan: 51yo female with history of Hodgkin's lymphoma presents s/p cardiac catherization for evaluation/treatment of dilated cardiomyopathy 1. Dilated cardiomyopathy -Etiology currently unclear, pending further investigation by cardiology -Continue with dobutamine drip as per cardiology recommendations -Patient referred to [facility] heart failure program for further evaluation -Cardiac cath/echo reviewed -Follow up cardiology recommendations 2. History of Hepatitis C -Patient had recently completed treatment with Epclusa -Follows up as an outpatient with GI 3. Hodgkin's lymphoma -Was in remission until 2011 at which time she had recurrence in her right groin and was treated with local radiation and allogeneic transplant -Follows up with Dr. Campos as an outpatient Patient seen and case discussed with attending, Dr. Campos - Date & Time Date: 02/26/17 Time: 10:34
[2017-02-27] MEDS: POLYETHYLENE GLYCOL 3350 17 GM/Dose PACKET PO SCH (09:13)
--- NOTE | 2017-02-27 10:12 | CP.PCM.PN ---
Subjective - Date & Time of Evaluation Date of Evaluation: 02/27/17 Time of Evaluation: 10:11 - Subjective Subjective: Heme/Onc progress note for Dr. Campos's service Patient seen and examined at bedside this morning. No acute overnight events or new complaints reported. Patient noted to have gram positive cocci in clusters growing in one blood culture bottle. Likely a contamination however, ID consulted, repeat cultures taken and she was started on vancomycin in the meantime. She denied chest pain, palpitations, SOB. Objective - Vital Signs/Intake and Output Vital Signs (last 24 hours): Temp Pulse Resp BP Pulse Ox 97.7 F 110 H 21 100/62 97 02/27/17 08:00 02/27/17 08:55 02/27/17 08:50 02/27/17 08:55 02/26/17 00:20 - Medications Medications: Current Medications Acetaminophen (Tylenol 325mg Tab) 650 mg PO Q4H PRN PRN Reason: Pain, moderate (4-7) Last Admin: 02/27/17 04:49 Dose: 650 mg Alprazolam (Xanax) 0.25 mg PO [facility] PRN Reason: Protocol Stop: 03/05/17 22:01 Last Admin: 02/27/17 09:09 Dose: 0.25 mg Aspirin (Ecotrin) 81 mg PO DAILY [facility] Last Admin: 02/27/17 09:09 Dose: 81 mg Carvedilol (Coreg) 3.125 mg PO BID [facility] Last Admin: 02/27/17 09:07 Dose: Not Given Digoxin (Lanoxin) 0.25 mg PO 1400 [facility] Last Admin: 02/26/17 14:19 Dose: 0.25 mg Gabapentin (Neurontin) 600 mg PO QPM [facility] PRN Reason: Protocol Last Admin: 02/26/17 19:11 Dose: Not Given Polyethylene Glycol (Miralax) 17 gm PO DAILY [facility] Last Admin: 02/27/17 09:13 Dose: 17 gm - Labs Labs: 02/26/17 06:14 02/26/17 06:14 - Constitutional Appears: No Acute Distress - Head Exam Head Exam: ATRAUMATIC, NORMAL INSPECTION, NORMOCEPHALIC - Eye Exam Eye Exam: EOMI, PERRL - ENT Exam ENT Exam: Mucous Membranes Moist - Neck Exam Neck Exam: Normal Inspection - Respiratory Exam Respiratory Exam: Decreased Breath Sounds (decreased breath sounds at the bases) . absent: Rales, Rhonchi, Wheezes - Cardiovascular Exam Cardiovascular Exam: +S1, +S2. absent: Clicks, Gallop, Rubs - GI/Abdominal Exam GI & Abdominal Exam: Soft. absent: Distended, Firm, Guarding, Rigid, Tenderness , Rebound - Extremities Exam Extremities Exam: Normal Inspection. absent: Pedal Edema - Neurological Exam Neurological Exam: Alert, Awake, CN II-XII Intact, Oriented x3 - Psychiatric Exam Psychiatric exam: Normal Affect, Normal Mood - Skin Skin Exam: Dry, Intact, Normal Color, Warm Assessment and Plan - Assessment and Plan (Free Text) Plan: 51yo female with history of Hodgkin's lymphoma presents s/p cardiac catherization for evaluation/treatment of dilated cardiomyopathy 1. Dilated cardiomyopathy -Etiology currently unclear, pending further investigation by cardiology -Continue with dobutamine drip as per cardiology recommendations -Patient referred to [facility] heart failure program for further evaluation -Cardiac cath/echo reviewed -Follow up cardiology recommendations 2. Positive blood culture -Gram positive cocci in clusters growing in 1 bottle, likely coagulase negative staph due to contamination -Repeat cultures ordered -Patient started on vancomycin 1g -ID consulted - Dr. Madrigal 3. History of Hepatitis C -Patient had recently completed treatment with Epclusa -Follows up as an outpatient with GI 4. Hodgkin's lymphoma -Was in remission until 2011 at which time she had recurrence in her right groin and was treated with local radiation and allogeneic transplant -Follows up with Dr. Campos as an outpatient Patient seen and case discussed with attending, Dr. Campos
[2017-02-27 10:33] LABS: ALB/GLOB RATIO 1.1 (1.1-1.8); ALKALINE PHOSPHATASE 77 U/L (38-126); ALT/SGPT 19 U/L (7-56); AST/SGOT 30 U/L (14-36); BASO # 0.01 K/mm3 (0.0-2.0); BASO % 0.2 % (0.0-3.0); BILIRUBIN,TOTAL 0.6 mg/dL (0.2-1.3); BLOOD UREA NITROGEN 13 mg/dL (7-21); CALCIUM 8.6 mg/dL (8.4-10.5); CARBON DIOXIDE 32 mmol/L (21-33); CHLORIDE 103 mmol/L (98-107); EOS # 0.1 (0.0-0.7); GFR AFRICAN-AMERICAN > 60; GLUCOSE,RANDOM 84 mg/dL (70-110); GRAN # 3.13 (1.4-6.5); GRAN % 51.2 % (50.0-68.0); HEMATOCRIT 36.4 % (36.0-48.0); LYMPH # 2.2 (1.2-3.4); LYMPH % 35.2 % (22.0-35.0); MAGNESIUM 2.1 mg/dL (1.7-2.2); MEAN CELL VOLUME 92.6 fl (80.0-105.0); MEAN CORPUSCULAR HEMOGLOBIN 30.3 pg (25.0-35.0); MEAN CORPUSCULAR HGB CONC 32.7 g/dl (31.0-37.0); MEAN PLATELET VOLUME 9.1 fl (7.0-11.0); MONO # 0.8 (0.1-0.6); MONO % 12.4 % (1.0-6.0); PHOSPHOROUS 3.6 mg/dL (2.5-4.5); POTASSIUM 4.2 mmol/L (3.6-5.0); RED CELL DISTRIBUTION WIDTH 13.8 % (11.5-14.5); SODIUM 141 mmol/L (132-148); TOTAL PROTEIN 6.2 g/dL (5.8-8.3); WHITE BLOOD COUNT 6.1 10^3/ul (4.5-11.0)
[2017-02-27 10:35] LABS: INR 0.96 (0.93-1.08); PARTIAL THROMBOPLASTIN TIME 29.9 Seconds (23.7-30.8)
--- NOTE | 2017-02-27 10:37 | CP.CCUPN ---
CCU Subjective - Physician Review Subjective (Free Text): 02/27/17 10:32 Patient s/e at bedside this AM. Patient continues to be hemodynamically stable overnight on dobutamine gtt. No acute events overnight. Patient denies chest pain, shob, ab pain, n/v/f/c. CCU Objective - Vital Signs / Intake & Output Vital Signs (Last 4 hours): Vital Signs Temp Pulse Resp BP 02/27/17 08:55 110 H 100/62 02/27/17 08:50 99 H 21 02/27/17 08:40 105 H 02/27/17 08:30 107 H 45 H 02/27/17 08:20 107 H 44 H 02/27/17 08:10 116 H 27 H 02/27/17 08:00 97.7 F 110 H 27 H 100/64 02/27/17 07:50 128 H 18 02/27/17 07:40 145 H 47 H 02/27/17 07:30 118 H 19 02/27/17 07:20 115 H 25 H 02/27/17 07:10 117 H 18 02/27/17 07:00 115 H 17 110/60 02/27/17 06:50 120 H 15 02/27/17 06:40 116 H 16 - Medications Active Medications: Active Medications Generic Name Dose Route Start Last Admin Trade Name Freq PRN Reason Stop Dose Admin Acetaminophen 650 mg 02/27/17 04:35 02/27/17 04:49 Tylenol 325mg Tab PO 650 mg Q4H PRN Administration Pain, moderate (4-7) Alprazolam 0.25 mg 02/26/17 22:00 02/27/17 09:09 Xanax PO 03/05/17 22:01 0.25 mg [facility] Administration Protocol Aspirin 81 mg 02/26/17 10:00 02/27/17 09:09 Ecotrin PO 81 mg DAILY [facility] Administration Carvedilol 3.125 mg 02/27/17 10:00 02/27/17 09:07 Coreg PO Not Given BID [facility] Digoxin 0.25 mg 02/26/17 14:00 02/26/17 14:19 Lanoxin PO 0.25 mg 1400 [facility] Administration Gabapentin 600 mg 02/25/17 22:00 02/26/17 19:11 Neurontin PO Not Given QPM [facility] Protocol Polyethylene Glycol 17 gm 02/26/17 10:00 02/27/17 09:13 Miralax PO 17 gm DAILY [facility] Administration - Patient Studies Lab Studies: Microbiology Studies 02/25/17 19:05 MRSA Culture (Admit) - Final Naris MRSA NOT DETECTED 02/25/17 20:30 Blood Culture - Preliminary Blood NO GROWTH AFTER 24 HOURS 02/25/17 20:00 Blood Culture - Preliminary Blood NO GROWTH AFTER 24 HOURS Assessment/Plan - Assessment and Plan (Free Text) Assessment: Patient is a 51yo female with history of Hodgkin's lymphoma, Hepatitis C s/p treatment, who is in the ICU s/p cardiac catherization for evaluation/treatment of dilated cardiomyopathy. Patient is hemodynamically stable on dobutamine gtt with plans for weaning off. Plan: Neuro: AAOX3, Stable Pulm: Pleural Effusion - As by evidence of CT scan, CV: CHF - ECHO with EF of 15-20% - Pro-BNP 2220, unkown baseline Dilated Cardiomyopathy - Etiology unclear at this point - Cardiology consulted(Dr. Aguilar) and following, appreciate recs - Curbside plan to titrate off dobutamine today, with potential for transfer to telemetry floor later today - Pt referred to [facility] heart failure for further evaluation - Potential for MRI for evaluation of cardiomyopathy - Echocardiogram EF 15-20% - Cardiac cath showed non-obstructive coronaries, LV dilated and hypokinetic with EF of 15-20% GI: Regular Diet, Stable, Protonix ppx Renal: BUN/Cr: 13/0.8, stable Monitor electrolytes and replace as needed - Date & Time Date: 02/27/17 Time: 10:39
[2017-02-27] MEDS: Digoxin 250 mcg (0.25 mg) Tab PO SCH (14:41)
--- NOTE | 2017-02-27 15:24 | PN ---
CARDIOLOGY FOLLOWUP DATE: 02/27/2017 SUBJECTIVE: The patient's breathing is much improved on IV dobutamine. Heart rate remains tachycardic. PHYSICAL EXAMINATION: NECK: Negative JVD. LUNGS: Without rales. HEART: S1, S2. EXTREMITIES: Without edema. LABORATORY DATA: Pending from today. IMPRESSION: 1. Severe dilated cardiomyopathy. 2. Congestive heart failure. 3. Dyspnea. 4. History of Hodgkin disease. 5. Transient hypotension. Given these findings, we will discontinue her dobutamine today. We will transfer to telemetry to ambulate. If the patient is doing well tomorrow, we will discharge with a referral to [facility] heart failure program where she will undergo an MRI and evaluation for possible myocardial biopsy. Shakir Aguilar MD
[2017-02-27] MEDS: Vancomycin 1gm in NS 250ml 1 GM/250 ML BAG IVPB SCH (16:30)
--- NOTE | 2017-02-27 20:09 | PN ---
SUBJECTIVE: The patient is 51 years old, seen and examined, lying in bed, seems to be worried. She states she feels little better, less shortness of breath and dizziness. PHYSICAL EXAMINATION: VITAL SIGNS: She is afebrile, pulse 104, respirations 16, and blood pressure 100/62. LUNGS: Bilateral diffusely decreased breath sound, more so at bases. HEART: S1 and S2 audible. ABDOMEN: Soft, nontender. No rebound. No guarding. NEUROLOGICAL: The patient is awake and alert, able to communicate. Moves all extremities. Bilateral leg, no edema. LABORATORY EXAM: WBC is 6.1, hemoglobin 11.9, hematocrit 36.4, and platelets 117. Chemistry: Sodium 141, potassium 4.2, chloride 103, CO2 of 32, BUN 13, and creatinine 0.7. Blood sugar of 84. She has blood culture drawn on 02/25, one of them is positive for gram-positive cocci and second one is negative. ASSESSMENT AND PLAN: 1. Dilated cardiomyopathy with ejection fraction of 20%, status post cardiac cath, negative for blockage. 2. History of lymphoma, status post chemo and bone marrow transplant. 3. Hepatitis C, status post recent treatment with antiviral. So, plan is, we will start the patient on vancomycin 1 g q. 12. ID consult by Dr. Madrigal and I will order for echocardiogram to rule out vegetation. She has been taken off of dobutamine drip. She has been started on carvedilol. She is on aspirin. She has been started on Famvir. She has been started on digoxin. We will follow up her electrolyte in a.m. and awaiting ID input. Kelly Aguilar MD
[2017-02-27] MEDS ORDERED: POLYETHYLENE GLYCOL 3350 17 GM/Dose PACKET PO ONE (20:42)
[2017-02-28 06:32] LABS: INR 0.92 (0.93-1.08); PARTIAL THROMBOPLASTIN TIME 28.5 Seconds (23.7-30.8)
[2017-02-28] MEDS: Vancomycin 1gm in NS 250ml 1 GM/250 ML BAG IVPB SCH ×3 (06:36→17:16)
[2017-02-28 06:38] LABS: ALB/GLOB RATIO 1.1 (1.1-1.8); ALKALINE PHOSPHATASE 90 U/L (38-126); ALT/SGPT 17 U/L (7-56); AST/SGOT 38 U/L (14-36); BILIRUBIN,TOTAL 0.6 mg/dL (0.2-1.3); BLOOD UREA NITROGEN 12 mg/dL (7-21); CALCIUM 9.2 mg/dL (8.4-10.5); CARBON DIOXIDE 29 mmol/L (21-33); CHLORIDE 105 mmol/L (98-107); GFR AFRICAN-AMERICAN > 60; GLUCOSE,RANDOM 95 mg/dL (70-110); MAGNESIUM 2.3 mg/dL (1.7-2.2); PHOSPHOROUS 3.6 mg/dL (2.5-4.5); POTASSIUM 4.2 mmol/L (3.6-5.0); SODIUM 142 mmol/L (132-148); TOTAL PROTEIN 6.8 g/dL (5.8-8.3)
[2017-02-28 06:46] LABS: BASO # 0.01 K/mm3 (0.0-2.0); BASO % 0.2 % (0.0-3.0); EOS # 0.1 (0.0-0.7); EOS % 1.9 % (1.5-5.0); GRAN # 2.88 (1.4-6.5); GRAN % 49.5 % (50.0-68.0); HEMATOCRIT 41.2 % (36.0-48.0); LYMPH # 2.1 (1.2-3.4); LYMPH % 36.4 % (22.0-35.0); MEAN CELL VOLUME 91.8 fl (80.0-105.0); MEAN CORPUSCULAR HEMOGLOBIN 30.7 pg (25.0-35.0); MEAN CORPUSCULAR HGB CONC 33.5 g/dl (31.0-37.0); MEAN PLATELET VOLUME 9.1 fl (7.0-11.0); MONO # 0.7 (0.1-0.6); RED CELL DISTRIBUTION WIDTH 13.7 % (11.5-14.5); WHITE BLOOD COUNT 5.8 10^3/ul (4.5-11.0)
[2017-02-28] MEDS: POLYETHYLENE GLYCOL 3350 17 GM/Dose PACKET PO SCH (09:06)
[2017-02-28] MEDS ORDERED: cefTRIAXone 1 gm 1 GM/100 ML BAG IVPB SCH (11:00)
--- NOTE | 2017-02-28 11:57 | PN ---
DATE: 02/28/2017 SUBJECTIVE: The patient's breathing is much improved. PHYSICAL EXAMINATION: VITAL SIGNS: Blood pressure is 112/74 with a heart rate in the 90s. NECK: Negative JVD. LUNGS: Without rales. HEART: Reveals S1, S2. EXTREMITIES: Without edema. LABORATORY DATA: One blood culture came back gram-positive cluster, staph negative, which is consistent with a contaminant. IMPRESSION: 1. Dilated cardiomyopathy. 2. Congestive heart failure which is now resolved. 3. Dyspnea, which is now resolved. 4. The patient is tolerating digoxin, carvedilol and we will add low-dose BRIDGETTE inhibitor. PLAN: The patient can be transferred to regular floor. It is likely the blood cultures are contaminant. Awaiting for ID Input. Shakir Aguilar MD
[2017-02-28] MEDS: Digoxin 250 mcg (0.25 mg) Tab PO SCH (14:27)
[2017-02-28 14:31] VITALS: PULSE 99
--- NOTE | 2017-02-28 16:01 | RAD ---
HISTORY: dyspnea COMPARISON: 02/25/2017 TECHNIQUE: Chest PA and lateral FINDINGS: LUNGS: No active pulmonary disease. PLEURA: No significant pleural effusion identified. No pneumothorax apparent. CARDIOVASCULAR: Normal. OSSEOUS STRUCTURES: No significant abnormalities. VISUALIZED UPPER ABDOMEN: Normal. OTHER FINDINGS: Right-sided Port-A-Cath IMPRESSION: No active disease.
--- NOTE | 2017-02-28 17:48 | CP.PCM.PN ---
Subjective - Date & Time of Evaluation Date of Evaluation: 02/28/17 Time of Evaluation: 09:30 - Subjective Subjective: Heme/Onc progress note for Dr. Campos's service Patient seen and examined at bedside this morning. No acute overnight events or new complaints reported. Discussed positive blood culture and need to repeat cultures and empirically treat at this time. ID consulted. Denies chest pain, palptiations, SOB. Objective - Vital Signs/Intake and Output Vital Signs (last 24 hours): Temp Pulse Resp BP Pulse Ox 98.2 F 99 H 24 92/31 L 96 02/28/17 10:00 02/28/17 15:50 02/28/17 11:50 02/28/17 10:59 02/28/17 11:50 Intake and Output: 02/28/17 02/28/17 06:59 18:59 Intake Total 500 Balance 500 - Medications Medications: Current Medications Acetaminophen (Tylenol 325mg Tab) 650 mg PO Q4H PRN PRN Reason: Pain, moderate (4-7) Last Admin: 02/27/17 04:49 Dose: 650 mg Alprazolam (Xanax) 0.25 mg PO [facility] PRN Reason: Protocol Stop: 03/05/17 22:01 Last Admin: 02/28/17 09:06 Dose: 0.25 mg Aspirin (Ecotrin) 81 mg PO DAILY [facility] Last Admin: 02/28/17 09:06 Dose: 81 mg Carvedilol (Coreg) 3.125 mg PO BID [facility] Last Admin: 02/28/17 17:13 Dose: 3.125 mg Digoxin (Lanoxin) 0.25 mg PO 1400 [facility] Last Admin: 02/28/17 14:27 Dose: 0.25 mg Famciclovir (Famvir) 500 mg PO BID [facility] Last Admin: 02/28/17 17:13 Dose: 500 mg Gabapentin (Neurontin) 600 mg PO QPM [facility] PRN Reason: Protocol Last Admin: 02/28/17 17:14 Dose: 600 mg Vancomycin HCl (Vancomycin 1gm) 1 gm in 250 mls @ 167 mls/hr IVPB 0600,1800 [facility] PRN Reason: Protocol Stop: 03/04/17 16:01 Last Admin: 02/28/17 17:14 Dose: 167 mls/hr Lisinopril (Zestril) 2.5 mg PO DAILY [facility] Last Admin: 02/28/17 14:28 Dose: 2.5 mg Polyethylene Glycol (Miralax) 17 gm PO DAILY [facility] Last Admin: 02/28/17 09:06 Dose: 17 gm - Labs Labs: 02/28/17 05:40 02/28/17 05:40 PT 9.9 Seconds (9.9-11.8) 02/28/17 05:40 INR 0.92 (0.93-1.08) L 02/28/17 05:40 APTT 28.5 Seconds (23.7-30.8) 02/28/17 05:40 - Constitutional Appears: No Acute Distress - Head Exam Head Exam: ATRAUMATIC, NORMAL INSPECTION, NORMOCEPHALIC - Eye Exam Eye Exam: EOMI, PERRL - ENT Exam ENT Exam: Mucous Membranes Moist - Neck Exam Neck Exam: Normal Inspection - Respiratory Exam Respiratory Exam: Decreased Breath Sounds (decreased more on the R>L). absent: Rales, Wheezes - Cardiovascular Exam Cardiovascular Exam: +S1, +S2. absent: Gallop, Rubs, Murmur - GI/Abdominal Exam GI & Abdominal Exam: Soft. absent: Distended, Firm, Guarding, Rigid, Tenderness , Rebound - Extremities Exam Extremities Exam: Normal Inspection. absent: Pedal Edema - Neurological Exam Neurological Exam: Alert, Awake, Oriented x3 - Psychiatric Exam Psychiatric exam: Normal Affect, Normal Mood - Skin Skin Exam: Dry, Intact, Normal Color, Warm Assessment and Plan - Assessment and Plan (Free Text) Plan: 51yo female with history of Hodgkin's lymphoma presents s/p cardiac catherization for evaluation/treatment of dilated cardiomyopathy 1. Dilated cardiomyopathy -Etiology currently unclear, pending further investigation by cardiology -Continue with dobutamine drip as per cardiology recommendations -Patient referred to [facility] heart failure program for further evaluation/treatment ; may possibly need cardiac MRI -Cardiac cath/echo reviewed -Follow up cardiology recommendations -CXR PA/Lateral reviewed; no active disease; see full report 2. Positive blood culture -Gram positive cocci in clusters growing in 1 bottle, likely coagulase negative staph due to contamination -Repeat cultures ordered -Patient started on vancomycin 1g -ID consulted - Dr. Madrigal -Echo reviewed 3. History of Hepatitis C -Patient had recently completed treatment with Epclusa -Follows up as an outpatient with GI 4. Hodgkin's lymphoma -Was in remission until 2011 at which time she had recurrence in her right groin and was treated with local radiation and allogeneic transplant -Follows up with Dr. Campos as an outpatient Patient seen and case discussed with attending, Dr. Campos
[2017-02-28 18:03] VITALS: RESP 20
--- NOTE | 2017-02-28 18:23 | PN ---
DATE: SUBJECTIVE: The patient is 51-year-old. Seen and examined. Seems to be doing better. No fever. No chills. No nausea, vomiting, or diarrhea. PHYSICAL EXAMINATION: VITAL SIGNS: She is afebrile. Pulse 95, respirations 23, and blood pressure 92/31. LUNGS: Bilateral fair airflow. No rhonchi or crackle. HEART: S1 and S2 audible. ABDOMEN: Soft and nontender. No rebound. No guarding. NEUROLOGICAL: She is awake and alert. Able to communicate. Moves all extremities. EXTREMITIES: No leg edema. LABORATORY DATA: WBC is 5.8, hemoglobin 13, hematocrit 41, and platelets 132. Chemistry; sodium 142, potassium 4.2, chloride 105, CO2 of 29, BUN 12, and creatinine 0.6. Blood sugar 195. Her one blood culture positive for Gram-positive cocci, sensitivity, and identification to follow. ASSESSMENT: 1. Dilated cardiomyopathy. 2. Congestive heart failure seems to be resolving. She was on dobutamine drip for 48 hours. 3. Positive blood culture, doubt bacteremia, could be contamination. The patient is afebrile with no white count. 4. History of hepatitis C. 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 PLAN: The patient has been started on carvedilol and digoxin. She is receiving vancomycin. She has been started on lisinopril 2.5 daily. She can be transferred to remote tele to monitor her for arrhythmia upon ambulation. Kelly Aguilar MD
--- NOTE | 2017-02-28 19:43 | CON ---
DATE: 02/28/2017 LOCATION: The patient is seen in the ICU 129, bed 4 earlier this morning. CHIEF COMPLAINT: Weakness times several days. HISTORY OF PRESENT ILLNESS: This is a 51-year-old female, known to me from history of Hodgkin's lymphoma, history of healthcare-associated pneumonia, history of hepatitis C, who has just completed hepatitis C treatment with Dr. Tadeo. The patient was admitted with cardiomyopathy and congestive heart failure. One blood culture was positive and Infectious Disease consultation was requested. PAST MEDICAL HISTORY: Significant for Hodgkin's lymphoma, pseudomembranous colitis, healthcare-associated pneumonia, and hepatitis C. PAST SURGICAL HISTORY: Significant for chest Port-A-Cath placement. The patient had allogeneic stem cell transplant 2011. Prior to that, she had an autologous transplant 2004. ALLERGIES: THE PATIENT IS ALLERGIC TO SULFAMETHOXAZOLE, TRIMETHOPRIM. HOME MEDICATIONS: Reviewed. The patient is on Neurontin and aspirin. The patient has just completed hepatitis C treatment with Epclusa, which is a combination of velpatasvir and sofosbuvir and was given almost 12 weeks of therapy. The patient tolerated medication well. REVIEW OF SYSTEMS: Revealed that the patient states that she has had no fevers and no chills. She was short of breath and had bilateral ankle edema. No abdominal pain, diarrhea, or constipation. No chest pain or headaches. PHYSICAL EXAMINATION: VITAL SIGNS: The patient's temperature is 98 and blood pressure is 100/30. Her blood pressure was low at 65/50, heart rate of 96, respiratory rate 21. HEENT: Unremarkable. NECK: Supple. HEART: Normal S1 and S2. LUNGS: Decreased breath sounds. ABDOMEN: Soft and nontender. LABORATORY EXAMINATION: Reveals the white count of 5.8, hemoglobin of 13, platelets of 132. Chemistry revealed the patient's BUN of 12, creatinine of 0.6. AST is 30. Microbiology reveals a Gram-positive cocci in the blood, one bottle and second bottle is no growth. The Gram-positive cocci has a coag-negative Staph and Dr. Shakir Aguilar's note is reviewed. ASSESSMENT AND PLAN: A 51-year-old female with hypertension, with Hodgkin's lymphoma, pseudomembranous colitis, healthcare-associated pneumonia, hepatitis C, dilated cardiomyopathy, congestive heart failure, which is now resolving with severe sepsis, one bottle coagulase-negative Staphylococcus bacteremia, most likely from contamination I doubted secondary to the Port-A-Cath. The patient with dilated cardiomyopathy with ejection fraction of 20% was actually more consistent with cardiogenic shock. Currently, the patient was empirically started on vancomycin. We will check on the repeat blood cultures and change from vancomycin pending repeat blood cultures and further identification and sensitivity Gram-positive cocci, which is only one bottle and the patient also, if persistent bacteremia, will need an echo and workup; however, most consistently based on the history, is a contamination, not a pathogen, on vancomycin. We will discontinue the ceftriaxone and treat with vancomycin. The patient had human immunodeficiency virus test in 2014, which was negative. Davon Madrigal MD
[2017-03-01] MEDS: Vancomycin 1gm in NS 250ml 1 GM/250 ML BAG IVPB SCH (06:37)
[2017-03-01 07:31] VITALS: BP 96/59; PULSE 88; TEMP 98.4; O2SAT 95
[2017-03-01] MEDS: POLYETHYLENE GLYCOL 3350 17 GM/Dose PACKET PO SCH ×2 (09:49→09:54)
--- NOTE | 2017-03-01 13:11 | PN ---
DATE: 03/01/2017 SUBJECTIVE: The patient is without shortness of breath. OBJECTIVE: VITAL SIGNS: Blood pressure is 96/60, the heart rate in the 80s. NECK: Negative JVD. LUNGS: Without rales. HEART: S1, S2. EXTREMITIES: Without edema. LABORATORY DATA: Hemoglobin is 13.8. Chemistries, BUN and creatinine unremarkable. IMPRESSION: 1. Status post congestive heart failure, which is better. 2. End-stage dilated cardiomyopathy. 3. Dyspnea is resolved. 4. History of Hodgkin's disease. Given these findings, the patient can and should be discharged today from a cardiac perspective. We will arrange for follow up with the heart failure program at [facility] for possibly biopsy and evaluation for transplant. Shakir Aguilar MD
--- NOTE | 2017-03-01 14:19 | CP.PCM.PN ---
Subjective - Date & Time of Evaluation Date of Evaluation: 03/01/17 Time of Evaluation: 11:05 - Subjective Subjective: Comfortable, no fevers, no pain at the port-a-cath site, not in distress. Objective - Vital Signs/Intake and Output Vital Signs (last 24 hours): Temp Pulse Resp BP Pulse Ox 98.4 F 88 20 96/59 L 95 03/01/17 07:31 03/01/17 09:50 03/01/17 07:31 03/01/17 09:50 03/01/17 07:31 Intake and Output: 03/01/17 03/01/17 06:59 18:59 Intake Total 660 480 Balance 660 480 - Medications Medications: Current Medications Acetaminophen (Tylenol 325mg Tab) 650 mg PO Q4H PRN PRN Reason: Pain, moderate (4-7) Last Admin: 02/27/17 04:49 Dose: 650 mg Alprazolam (Xanax) 0.25 mg PO [facility] PRN Reason: Protocol Stop: 03/05/17 22:01 Last Admin: 03/01/17 09:50 Dose: 0.25 mg Aspirin (Ecotrin) 81 mg PO DAILY [facility] Last Admin: 03/01/17 09:50 Dose: 81 mg Carvedilol (Coreg) 3.125 mg PO BID [facility] Last Admin: 03/01/17 09:50 Dose: 3.125 mg Digoxin (Lanoxin) 0.25 mg PO 1400 [facility] Last Admin: 02/28/17 14:27 Dose: 0.25 mg Famciclovir (Famvir) 500 mg PO BID [facility] Last Admin: 03/01/17 09:49 Dose: 500 mg Gabapentin (Neurontin) 600 mg PO QPM [facility] PRN Reason: Protocol Last Admin: 02/28/17 17:14 Dose: 600 mg Vancomycin HCl (Vancomycin 1gm) 1 gm in 250 mls @ 167 mls/hr IVPB 0600,1800 [facility] PRN Reason: Protocol Stop: 03/04/17 16:01 Last Admin: 03/01/17 06:37 Dose: 167 mls/hr Lisinopril (Zestril) 2.5 mg PO DAILY [facility] Last Admin: 03/01/17 09:50 Dose: 2.5 mg Polyethylene Glycol (Miralax) 17 gm PO DAILY [facility] Last Admin: 03/01/17 09:54 Dose: Not Given - Labs Labs: 02/28/17 05:40 02/28/17 05:40 PT 9.9 Seconds (9.9-11.8) 02/28/17 05:40 INR 0.92 (0.93-1.08) L 02/28/17 05:40 APTT 28.5 Seconds (23.7-30.8) 02/28/17 05:40 - Constitutional Appears: Non-toxic, No Acute Distress - Head Exam Head Exam: NORMAL INSPECTION - ENT Exam ENT Exam: Mucous Membranes Moist - Neck Exam Neck Exam: absent: Meningismus - Respiratory Exam Respiratory Exam: Decreased Breath Sounds Additional comments: anterior chest wall port-a-cath in place - Cardiovascular Exam Cardiovascular Exam: +S1, +S2 - GI/Abdominal Exam GI & Abdominal Exam: Soft. absent: Tenderness Assessment and Plan - Assessment and Plan (Free Text) Plan: Assessment Coagulase negative staph in one out of 4 blood cx bottles, most likely contamination acute respiratory failure probably from congestive heart failure, clinically improved chronic renal failure from dilated cardiomyopathy with EF 20% S/P port-a-cath placement Hodgkin lymphoma history of pseudomembranous colitis hepatitis C Plan Will d/c IV Vancomycin and observe; repeat blood cx are negative making the coagulase negative staph in the blood most likely a contaminant hepatitis C should be addressed as an outpatient discussed with Dr. Campos
--- NOTE | 2017-03-01 20:55 | DS ---
HISTORY OF PRESENT ILLNESS: The patient is a 51 years old, seen and examined, anxious to go home. Denies any chest pain. No shortness of breath. PHYSICAL EXAMINATION: VITAL SIGNS: She is afebrile. Pulse 88, respiration 20, blood pressure 96/59. LUNGS: Bilateral fair airflow. No rhonchi or crackle. HEART: S1 and S2 audible. ABDOMEN: Soft and nontender. No rebound. No guarding. NEUROLOGICAL: She is awake and alert. Able to communicate. Ambulatory. LABORATORY DATA: There is no new lab available today. ASSESSMENT: 1. Dilated cardiomyopathy. 2. Bacteremia, but seems to be contamination. The patient is afebrile with no white count. 3. History of hepatitis C, status post antiviral treatment. 4. History of lymphoma, status post bone marrow transplant. PLAN: At this point, the patient is clinically stable. Her repeat cultures are negative. She is afebrile. No white count, so she will be discharged home on Coreg 3.125 twice a day; aspirin 81 daily; digoxin 0.25 daily, and she will continue gabapentin and lisinopril 2.5 daily, so she will follow up with Dr. Aguilar on 03/06. He will make arrangement to send her to . Kelly Aguilar MD
--- NOTE | 2017-03-04 03:04 | PN ---
DATE: 03/01/2017 LOCATION: The patient is in Room 375, Bed 2. SUBJECTIVE: The patient is being discharged today. This is a 51-year-old white female who is well known to me. She has a history of Hodgkin's disease with labs x3. Initially presented in had reoccurrence in 2001 and then again a reoccurrence in 2011 for which she had an allogeneic transplant from her son under the supervision of Dr. Rosado at [place] and was admitted to the hospital on an emergent basis after coming to see me in the office with sudden onset of shortness of breath, dizziness, and atypical chest pain. The patient was admitted and had a cardiac cath done before admission, which revealed significant dilated cardiomyopathy and the patient was admitted for further management. The patient currently feels better after receiving IV dobutamine and has been switched over to medications including carvedilol, digoxin, and Lisinopril. PHYSICAL EXAMINATION: GENERAL: The patient is awake, alert and oriented, in no acute distress. VITAL SIGNS: Stable. Pulse is 88, respirations 20, blood pressure is 96/59. LUNGS: Clear to percussion and auscultation. HEART: Reveals S1 and S2 to be audible. No S3 is heard. ABDOMEN: Soft, nontender. No rebound, rigidity or guarding is noted. The patient on the right side reveals a port which is intact. No evidence of any superficial or local infection. NEUROLOGIC: Reveals the patient's higher functions to be normal. ASSESSMENT NOTES AND PLAN: I had a detailed discussion the patient and spoke to Dr. Aguilar. The concern for the bacteremia seems to be probably from contamination as per my discussion with Dr. Vu. My concern was that since she had a port for around about 4 years, this should be treated rather seriously. They suggested to me that we should do a repeat blood culture as an outpatient in about a week's time. The patient just had been treated, completed a hepatitis C treatment about 3 weeks ago. I had spoken to Dr. Buckner, the transplant block machine operator who suggested that she has to be at least clinically virus free at 9 weeks before saying that she is free of her hepatitis C. Per their informed consent, she is clinically in remission. Last PET CT scan just done less than a month ago showed nonspecific uptake in inguinal areas, which is going to be monitored again in February. As per my discussion with Dr. Aguilar, the patient is going to be discharged on the current medications. He is going to ask the patient to be seen by the cardiac failure team at [facility] to see if the patient is a candidate for one endomyocardial biopsy to determine if this is of a viral etiology or due to the cumulative effect from all the treatments she had over the past 30 years. The patient may need to be considered for a cardiac transplant as well. I spoke to the patient in detail. I told her to carry all the reports that I have given her so far including the stress test and the myocardial scan that she had done in 2011 when her condition as far as the heart is concerned was within normal limits. So whatever has happened has happened again during the last 3 to 4 years. I had spoken with Dr. Buckner also hepatitis C should not have any cardiac side effects. I will have to speak with Dr. Rosado to see if having had a history of having had a transplant in 2011, would preclude her from getting any other procedures including a cardiac transplant in the near future if so, and if it is necessary. DISCHARGE MEDICATIONS: Include Coreg 3.125 mg daily, aspirin 81 mg daily, digoxin 0.25 mg Saturday, Saturday, and Saturday. Gabapentin and lisinopril 2.5 mg daily. PLAN: She will follow up with Dr. Aguilar next week and she will also follow up with me in about a week's time to make sure we do the cultures and follow up on her status as far as the lymphoma is concerned. Routine post exam instructions have been given to the patient. Time spent with the patient 45 minutes. Alex Campos MD
== END 2017-03-01 13:52 | disposition home or self-care (01) | DRG 314 ==
LOC: ED 13:19 → ERH 14:25 → CCU 18:45 → 3RSO 02-28 13:32
PROVIDERS: ADMIT Internal Medicine; ATTEND Internal Medicine
DX: I42.0 Dilated cardiomyopathy (principal); R57.0 Cardiogenic shock; C81.95 Hodgkin lymphoma, unspecified, lymph nodes of inguinal region and lower limb; I13.0 Hypertensive heart and chronic kidney disease with heart failure and stage 1 through stage 4 chronic kidney disease, or unspecified chronic kidney disease; Z94.81 Bone marrow transplant status; I50.814 Right heart failure due to left heart failure; N18.9 Chronic kidney disease, unspecified; G62.9 Polyneuropathy, unspecified; I25.10 Atherosclerotic heart disease of native coronary artery without angina pectoris; B19.20 Unspecified viral hepatitis C without hepatic coma; J44.9 Chronic obstructive pulmonary disease, unspecified; F41.9 Anxiety disorder, unspecified; K59.00 Constipation, unspecified; R00.0 Tachycardia, unspecified; Z87.01 Personal history of pneumonia (recurrent); Z79.82 Long term (current) use of aspirin; Z87.891 Personal history of nicotine dependence; Z82.49 Family history of ischemic heart disease and other diseases of the circulatory system

== ENCOUNTER 2017-07-25 06:44 | Observation (INO) | payer BC ==
[2017-07-25 06:49] VITALS: BMI 25.9
[2017-07-25] MEDS ORDERED: Sodium Chloride 0.9% 1,000 ML IV STA (07:30)
--- NOTE | 2017-07-25 07:40 | ED PDOC ---
Arrival/HPI - General Chief Complaint: Shortness Of Breath Time Seen by Provider: 07/25/17 07:14 Historian: Patient - History of Present Illness Narrative History of Present Illness (Text): 07/25/17 07:30 51 year old female, whose past medical history includes hypotension, aortic stenosis with valve replacement (May 2016), pacemaker (May 2016), Hodgkin's lymphoma on remission, who presents to the Emergency department complaining of shortness of breath since one day ago but has been intermittent for months. Patient reports she's had this intermittent symptom for a couple of months and notes having a pacemaker and AV replacement placed in May at [facility]. She also has complaints of chest discomfort, associated with lightheadedness and fatigue. She gets the SOB mostly when she stands up or exerts herself. After the sugeries in May 2016 she felt better but symptoms are continuing. She states she went to see Dr. Aguilar yesterday who recommends to come to the ED if symptoms persist. Additionally, patient notes having a scheduled echocardiogram in a few weeks. Patient denies headache, dysruia, hematuria, abdominal pain, nausea, vomiting, diarrhea, lower extremity swelling or other complaints. PMD: Dr. Aguilar Parts Professional: Dr. Aguilar Laborer Shipyard: Dr. Campos Time/Duration: 24 hours Symptom Onset: Gradual Symptom Course: Unchanged, Intermittent Activities at Onset: Light Context: Home Past Medical History - Provider Review Nursing Documentation Reviewed: Yes - Infectious Disease Hx of Infectious Diseases: None - Tetanus Immunization Tetanus Immunization: Unknown - Cardiac Hx Cardiac Disorders: Yes Hx Hypotension: Yes Hx Pacemaker: No Other/Comment: aortic stenosis, TAVR and PPM 06/19/17 - Pulmonary Hx Respiratory Disorders: Yes Hx Pneumonia: Yes (09-16-14) - Neurological Hx Neurological Disorder: No - HEENT Hx HEENT Disorder: (WEARS RX GLASSES FOR READING) - Renal Hx Renal Disorder: No - Endocrine/Metabolic Hx Endocrine Disorders: No - Hematological/Oncological Hx Blood Disorders: Yes Hx Anemia: Yes (blood transfusion) Hx Cancer: Yes (hodgkin's lymphoma reoccurring for 24 yrs dx 1988) Hx Chemotherapy: Yes (chemo and radiation last given 03/2012) Hx Hepatitis C: Yes Other/Comment: hodgkins lymphoma has recurred 4 times since being dx in 1988 - Integumentary Hx Dermatological Disorder: No - Musculoskeletal/Rheumatological Hx Falls: No - Gastrointestinal Hx Gastrointestinal Disorders: Yes (constipation) Hx Constipation: Yes - Genitourinary/Gynecological Hx Genitourinary Disorders: No - Psychiatric Hx Emotional Abuse: No Hx Physical Abuse: No Hx Substance Use: No - Past Surgical History Past Surgical History: Non-Contributing - Surgical History Hx Cardiac Catheterization: Yes (02/25/2017) Other/Comment: R chest port - Anesthesia Hx Anesthesia: Yes Hx Anesthesia Reactions: No Hx Malignant Hyperthermia: No - Suicidal Assessment Feels Threatened In Home Enviroment: No Family/Social History - Physician Review Nursing Documentation Reviewed: Yes Family/Social History: Unknown Family HX Smoking Status: Current Some Days Smoker Hx Alcohol Use: Yes (social drinker) Frequency of alcohol use: Socially Hx Substance Use: No Allergies/Home Meds Allergies/Adverse Reactions: Allergies sulfamethoxazole [From Bactrim] Allergy (Severe, Verified 02/22/17 13:33) RASH trimethoprim [From Bactrim] Allergy (Severe, Verified 02/22/17 13:33) RASH Home Medications: Home Meds Medication Instructions Recorded Confirmed Aspirin [Ecotrin] 81 mg PO DAILY 02/22/17 02/25/17 Gabapentin [Neurontin] 600 mg PO QPM 02/22/17 02/25/17 Review of Systems - Review of Systems Constitutional: Fatigue. absent: Fevers ENT: absent: Sore Throat Respiratory: SOB, Cough Cardiovascular: Other (chest discomfort). absent: Palpitations Gastrointestinal: absent: Abdominal Pain, Diarrhea, Vomiting Genitourinary Female: absent: Dysuria, Hematuria Musculoskeletal: absent: Back Pain Skin: absent: Rash Neurological: Other (lightheadedness). absent: Headache Endocrine: absent: Polyuria Physical Exam Vital Signs Reviewed: Yes Vital Signs Temp Pulse Resp BP Pulse Ox 07/25/17 11:25 85 108/58 L 07/25/17 08:30 76 18 112/65 98 07/25/17 07:30 98 F 72 18 100/56 L 99 07/25/17 06:58 22 100 07/25/17 06:53 97.6 F 89 22 85/43 L 100 Temperature: Afebrile Blood Pressure: Hypotensive Pulse: Regular Respiratory Rate: Normal Appearance: Positive for: Well-Appearing, Non-Toxic, Comfortable Pain Distress: None Mental Status: Positive for: Alert and Oriented X 3 - Systems Exam Head: Present: Atraumatic, Normocephalic Pupils: Present: PERRL Extroacular Muscles: Present: EOMI Conjunctiva: Present: Normal Respiratory/Chest: Present: Clear to Auscultation, Good Air Exchange. No: Respiratory Distress, Accessory Muscle Use, Wheezes, Rales, Retracting, Rhonchi Cardiovascular: Present: Regular Rate and Rhythm, Normal S1, S2. No: Murmurs Abdomen: Present: Normal Bowel Sounds. No: Tenderness, Distention, Peritoneal Signs, Rebound, Guarding Lower Extremity: Present: Normal Inspection, NORMAL PULSES, Normal ROM, Neurovascularly Intact, Capillary Refill < 2 s. No: Edema, Cyanosis, Tenderness , Swelling, Erythema, Deformity Neurological: Present: GCS=15, CN II-XII Intact, Speech Normal, Motor Func Grossly Intact, Normal Sensory Function, Memory Normal Skin: Present: Warm, Dry, Normal Color. No: Rashes Psychiatric: Present: Alert, Oriented x 3, Normal Insight, Normal Concentration Medical Decision Making ED Course and Treatment: 07/25/17 Impression: 51 year old female with unremarkable exam complaining of shortness of breath since one day ago. Differential Diagnosis included but are not limited to: ACS vs. Aortic Stenosis vs CHF vs. PE Plan: -- EKG -- Chest X-ray -- Labs -- Sodium Chloride -- Reassess and disposition Progress Notes: EKG: Ordered, reviewed, and independently interpreted the EKG. Rate : 85 BPM Rhythm : pace electrical rhythm Interpretation : No ST-segment elevations or depressions, no T-wave inversions, normal intervals. 07/25/17 09:00 Chest X-ray: Creator : Fidencio Jensen MD COMPARISON: 07/12/2017 FINDINGS: LUNGS: No active pulmonary disease. PLEURA: No significant pleural effusion identified, no pneumothorax apparent. CARDIOVASCULAR: Normal. OSSEOUS STRUCTURES: No significant abnormalities. VISUALIZED UPPER ABDOMEN: Normal. OTHER FINDINGS: Pacemaker IMPRESSION: No active disease. 07/25/17 10:[address]: Creator : Fidencio Jensen MD FINDINGS: PULMONARY ARTERIES: Unremarkable. No pulmonary embolism. AORTA: No acute findings. No thoracic aortic aneurysm. There is an aortic valve replacement. There is no evidence of dissection LUNGS: Unremarkable. No nodule, mass or pulmonary consolidation. PLEURAL SPACES: Unremarkable. No effusion or pneuomothorax. HEART: Unremarkable. No cardiomegaly. No significant pericardial effusion. LYMPH NODES: No lymphadenopathy. BONES, CHEST WALL: Unremarkable. No fracture or destructive lesion OTHER FINDINGS: Unremarkable. IMPRESSION: Unremarkable CT pulmonary angiogram. No pulmonary embolus. 07/25/17 10:00 Patient is low probability for PE so a d-dimer was sent. Results of the d-dimer were elevated. I discussed this with patient and that there was therefore an indication for a CT Angio Chest to r/o PE. She agreed to the CT. CT Angio Chest was negative for PE. Case then discussed with Dr. Aguilar, patient's store worker who recommends starting the patient on a non-titratible does of dopamine at 5mcg/kg/min which was properly ordered. He recommends only a baby aspirin and not a full dose at this time. He states she has normal cath recently. Case was discussed with Dr. Aguilar who will place under under her service. - Critical Care Critical Care Minutes: 30 minutes - Lab Interpretations Microbiology Results: Microbiology Results 07/25/17 07:40 Blood-Venous Blood Culture - Preliminary NO GROWTH AFTER 4 DAYS 07/25/17 07:20 Blood-Venous Blood Culture - Preliminary NO GROWTH AFTER 4 DAYS Lab Results: 07/25/17 06:56 07/25/17 06:56 Lab Results 07/25/17 07:40: pO2 33, VBG pH 7.32, VBG pCO2 59.0, VBG HCO3 30.4 H, VBG Total CO2 32.2 H, VBG O2 Sat (Calc) 64.7, VBG Base Excess 2.8 H, VBG Potassium 4.2, Glucose 83, Lactate 1.3, FiO2 21.0, Sodium 139.0, Chloride 107.0, Venous Blood Potassium 4.2 07/25/17 06:56: Sodium 144, Potassium 4.9, Chloride 104, Carbon Dioxide 29, Anion Gap 17, BUN 27 H, Creatinine 0.9, Est GFR ( Amer) > 60, Est GFR ( Non-Af Amer) > 60, Random Glucose 74, Calcium 10.5, Lactate Dehydrogenase 728 H , Total Creatine Kinase 94, Troponin I 0.34 H*, NT-Pro-B Natriuret Pep 702 H 07/25/17 06:56: PT 9.9, INR 0.86 L, APTT 31.3, D-Dimer, Quantitative 2861 H 07/25/17 06:56: WBC 6.9, RBC 4.52, Hgb 13.4, Hct 41.5, MCV 91.8, MCH 29.6, MCHC 32.3, RDW 14.6 H, Plt Count 144, MPV 10.0, Gran % 34.7 L, Lymph % (Auto) 51.6 H , Montgomery % (Auto) 9.7 H, Eos % (Auto) 3.6, Baso % (Auto) 0.4, Gran # 2.40, Lymph # (Auto) 3.6 H, Montgomery # (Auto) 0.7 H, Eos # (Auto) 0.3, Baso # (Auto) 0.03 I have reviewed the lab results: Yes - RAD Interpretation Radiology Orders: 07/25/17 07:29 CHEST PORTABLE [RAD] Stat 07/25/17 08:25 ANGIO CHEST PE PROTOCOL [CT] Stat Fast Food Manager: Radiologist - EKG Interpretation Interpreted by ED Physician: Yes Type: 12 lead EKG - Medication Orders Current Medication Orders: Discontinued Medications Alprazolam (Xanax) 0.25 mg PO HS PRN; Protocol PRN Reason: Anxiety Stop: 08/01/17 22:01 Last Admin: 07/25/17 22:09 Dose: 0.25 mg Behavioural Document 07/25/17 22:09 KTR (Rec: 07/25/17 22:10 KTR [id number]) Maintenance Maintenance Dose No Nonmedicinal Nonmedicinal Interventions Activity Behavior Behavior for Medication: Anxiety Re-Assess: Reassess Psych Meds Document 07/25/17 23:09 KTR (Rec: 07/26/17 06:29 KTR [id number]) Reassess Psych Med Effective Aspirin (Aspirin Chewable) 81 mg PO STAT STA Stop: 07/25/17 10:34 Last Admin: 07/25/17 11:25 Dose: 81 mg Digoxin (Lanoxin) 0.25 mg PO DAILY [facility] Last Admin: 07/26/17 10:21 Dose: 0.25 mg MAR Apical Pulse Rate Document 07/26/17 10:21 LC (Rec: 07/26/17 10:22 LC [id number]) Apical Pulse Rate Apical Pulse Rate (60-90 beats/min) 71 Sodium Chloride (Sodium Chloride 0.9%) 1,000 mls @ 999 mls/hr IV .Q1H1M STA Stop: 07/25/17 08:30 Last Admin: 07/25/17 07:52 Dose: 999 mls/hr eMAR Start Stop Document 07/25/17 07:52 MIGUELITO (Rec: 07/25/17 07:53 MIGUELITO [id number]) Intravenous Solution Start Date 07/25/17 Start Time 07:53 End Date 07/25/17 End time 08:53 Total Infusion Time 60 Dobutamine HCl/Dextrose (Dobutamine/Dextrose 5% 500mg/250ml) 500 mg in 250 mls @ 10.274 mls/hr IV .Q24H PRN; 5 MCG/KG/MIN PRN Reason: blood pressure Last Admin: 07/26/17 10:21 Dose: 10.274 mls/hr eMAR Start Stop Document 07/26/17 10:21 LC (Rec: 07/26/17 10:21 LC [id number]) Intravenous Solution Start Date 07/26/17 Start Time 10:21 Lisinopril (Zestril) 2.5 mg PO DAILY [facility] Last Admin: 07/26/17 10:25 Dose: Not Given Non-Admin Reason: Patient Refused Polyethylene Glycol (Miralax) 17 gm PO HS [facility] Last Admin: 07/25/17 22:10 Dose: 17 gm - Scribe Statement The provider has reviewed the documentation as recorded by the Edy Harris Provider Scribe Attestation: All medical record entries made by the Brittanyibroberto were at my direction and personally dictated by me. I have reviewed the chart and agree that the record accurately reflects my personal performance of the history, physical exam, medical decision making, and the department course for this patient. I have also personally directed, reviewed, and agree with the discharge instructions and disposition. Disposition/Present on Arrival - Present on Arrival Any Indicators Present on Arrival: No History of DVT/PE: No History of Uncontrolled Diabetes: No Urinary Catheter: No History of Decub. Ulcer: No History Surgical Site Infection Following: None - Disposition Have Diagnosis and Disposition been Completed?: Yes Diagnosis: NSTEMI (non-ST elevated myocardial infarction), Dyspnea Disposition: HOSPITALIZED Disposition Time: 09:59 Patient Plan: Admission Condition: FAIR
[2017-07-25 07:46] LABS: BASO # 0.03 K/mm3 (0.0-2.0); BASO % 0.4 % (0.0-3.0); EOS # 0.3 (0.0-0.7); EOS % 3.6 % (1.5-5.0); GRAN # 2.4 (1.4-6.5); GRAN % 34.7 % (50.0-68.0); HEMOGLOBIN 13.4 g/dL (12.0-16.0); LYMPH # 3.6 (1.2-3.4); LYMPH % 51.6 % (22.0-35.0); MEAN CELL VOLUME 91.8 fl (80.0-105.0); MEAN CORPUSCULAR HEMOGLOBIN 29.6 pg (25.0-35.0); MEAN CORPUSCULAR HGB CONC 32.3 g/dl (31.0-37.0); MONO # 0.7 (0.1-0.6); MONO % 9.7 % (1.0-6.0); RBC 4.52 10^6/uL (3.5-6.1); RED CELL DISTRIBUTION WIDTH 14.6 % (11.5-14.5); WHITE BLOOD COUNT 6.9 10^3/ul (4.5-11.0)
[2017-07-25 07:57] LABS: BLOOD UREA NITROGEN 27 mg/dL (7-21); GFR AFRICAN-AMERICAN > 60; GFR NON-AFRICAN AMERICAN > 60
[2017-07-25 07:58] LABS: CALCIUM 10.5 mg/dL (8.4-10.5)
[2017-07-25 08:03] LABS: VENOUS BLOOD GAS BASE EXCESS 2.8 mmol/L (0.0-2.0); VENOUS BLOOD GAS PO2 33 mm/Hg (30-55); VENOUS BLOOD PH 7.32 (7.32-7.43)
[2017-07-25 08:08] LABS: INR 0.86 (0.93-1.08); PARTIAL THROMBOPLASTIN TIME 31.3 Seconds (25.1-36.5); PROTHROMBIN TIME 9.9 SECONDS (9.4-12.5)
[2017-07-25 08:25] LABS: B-TYPE NATRIURETIC PEPTIDE 702 pg/mL (0-450); TROPONIN I 0.34 ng/mL
[2017-07-25] MEDS ORDERED: Iohexol 350 MG/100 ML VIAL ONE (08:32)
--- NOTE | 2017-07-25 08:57 | RAD ---
HISTORY: sob r/o pna COMPARISON: 07/12/2017 FINDINGS: LUNGS: No active pulmonary disease. PLEURA: No significant pleural effusion identified, no pneumothorax apparent. CARDIOVASCULAR: Normal. OSSEOUS STRUCTURES: No significant abnormalities. VISUALIZED UPPER ABDOMEN: Normal. OTHER FINDINGS: Pacemaker IMPRESSION: No active disease.
--- NOTE | 2017-07-25 09:34 | CT ---
PROCEDURE: CT Chest with contrast (Pulmonary Angiogram) HISTORY: sob r/o PE; elev dimer COMPARISON: None available. TECHNIQUE: Axial computed tomography images were obtained of the chest in the pulmonary arterial phase of enhancement. Coronal and sagittal reformatted images were created and reviewed. Intravenous contrast dose: 100 cc of Omni 350 Radiation dose: Total exam DLP = 311 mGy-cm. This CT exam was performed using one or more of the following dose reduction techniques: Automated exposure control, adjustment of the mA and/or kV according to patient size, and/or use of iterative reconstruction technique. FINDINGS: PULMONARY ARTERIES: Unremarkable. No pulmonary embolism. AORTA: No acute findings. No thoracic aortic aneurysm. There is an aortic valve replacement. There is no evidence of dissection LUNGS: Unremarkable. No nodule, mass or pulmonary consolidation. PLEURAL SPACES: Unremarkable. No effusion or pneuomothorax. HEART: Unremarkable. No cardiomegaly. No significant pericardial effusion. LYMPH NODES: No lymphadenopathy. BONES, CHEST WALL: Unremarkable. No fracture or destructive lesion OTHER FINDINGS: Unremarkable. IMPRESSION: Unremarkable CT pulmonary angiogram. No pulmonary embolus.
[2017-07-25] MEDS ORDERED: DOBUTamine 500mg/250ml D5W 500 MG/250 ML BAG IV PRN (10:31)
[2017-07-25] MEDS: DOBUTamine 500mg/250ml D5W 500 MG/250 ML BAG IV PRN (11:25)
[2017-07-25] MEDS ORDERED: POLYETHYLENE GLYCOL 3350 17 GM/Dose PACKET PO SCH (22:00)
--- NOTE | 2017-07-25 22:00 | CON ---
DATE: 07/25/2017 CARDIOLOGY CONSULTATION HISTORY OF PRESENT ILLNESS: The patient is a 51-year-old woman, who was diagnosed with a cardiomyopathy and aortic valve disease in the past. She underwent TAVR at [facility] as well as evaluation by the heart failure group. She was released and presented to my office with marked exertional dyspnea, able to walk approximately half a block. She denies chest pain. The patient's previous workup included a cardiac catheterization, which was performed in 02/2017. At that time, her LV function revealed an ejection fraction of 20%. There was nonobstructive CAD with intramyocardial portion of the LAD and distal portion noted. SOCIAL HISTORY: The patient does not smoke. REVIEW OF SYSTEMS: Fourteen-point review of systems was dominated by exertional dyspnea with occasional symptoms at rest. No angina. No pedal edema. No other cardiac symptoms are noted. PHYSICAL EXAMINATION: VITAL SIGNS: Blood pressure initially was 85, which wally to 110 systolic. NECK: Negative JVD. LUNGS: Crackles at the bases. HEART: Reveals S1, S2. EXTREMITIES: Without edema. EKG is noted. LABORATORY DATA: Hemoglobin is 13.4. Chemistries: BUN and creatinine unremarkable. Troponin is 0.37. IMPRESSION: 1. Acute systolic congestive heart failure. 2. Severe dilated cardiomyopathy. 3. Status post transcatheter aortic valve replacement. 4. Status post pacemaker placement after transcatheter aortic valve replacement. 5. Exertional dyspnea. 6. Borderline elevated troponins. PLAN: Given these findings, the patient will be admitted for IV ionotropic therapy to help improve her cardiac symptoms. She has so far been intolerant to BRIDGETTE inhibitors due to her low blood pressure. Her borderline elevated troponin is of less concern given that she had a previous catheterization, which she had a recent catheterization that shows no critical lesions. Shakir Aguilar MD
[2017-07-26 00:08] VITALS: RESP 20; O2SAT 96
--- NOTE | 2017-07-26 00:27 | HP ---
HISTORY OF PRESENT ILLNESS: Patient is a 51 years old who was seen in the office 3 days ago. She was complaining of feeling weak, dizzy, lightheaded. Her blood pressure was running low, 85/60, and she states she is getting off and on jerky movement at the place of pacemaker. I advised her to go to emergency room, but she stated that she has an appointment with Dr. Aguilar and wants to get his opinion. So, she was seen by Dr. Aguilar yesterday, who advised her to come to the emergency room for further evaluation. She has been increasingly fatigued, tired, short of breath. No history of nausea or vomiting. No fever, no chills. Patient had viral syndrome 2 to 3 weeks ago where she was given doxycycline and Tamiflu with significant improvement. PAST MEDICAL HISTORY: Significant for lymphoma and she had chemotherapy. She had bone marrow transplant a couple of years ago, but she has remission. She has exacerbation, was given treatment by Dr. Campos again. Lately, she developed shortness of breath with weakness and it was determined she has cardiomyopathy. She was referred to [facility] where patient had pacemaker placed and she also had TAVR done. History of hepatitis C, she was treated for that also. Left ventricular dysfunction with ejection fraction of 20%. ALLERGIES: SHE IS ALLERGIC TO SULFA MEDICATION. FAMILY HISTORY: Significant for mother having anxiety disorder, COPD, and pulmonary hypertension. Father of congestive heart failure. SOCIAL HISTORY: She is . Lives with her son. Smokes here and there when she is anxious. REVIEW OF SYSTEMS: Complain of generalized weakness, shortness of breath, gets tired very easily. PHYSICAL EXAMINATION: VITAL SIGNS: She is afebrile. Pulse 85, respirations 18, blood pressure 108/58. LUNGS: Bilateral fair airflow, decreased at bases. HEART: S1, S2 audible. ABDOMEN: Soft, nontender, no rebound, no guarding. NEUROLOGIC: She is awake, alert, oriented, communicative. LABORATORY DATA: WBC 6.9, hemoglobin 13.4, hematocrit 41.5, platelet 144. Chemistry: Sodium 144, potassium 4.9, chloride 104, CO2 of 29, BUN 27, creatinine 0.9, blood sugar of 74, troponin 0.34. CT scan of the chest is unremarkable, no evidence of pulmonary embolism. ASSESSMENT: 1. Cardiomyopathy. 2. Congestive heart failure. 3. Hypotension. 4. History of lymphoma. 5. History of hepatitis C. PLAN: Currently, patient is on dobutamine; she is on aspirin. We will follow up with the patient in a.m. Kelly Aguilar MD
--- NOTE | 2017-07-26 09:40 | CARD ---
APPROVED REPORT EKG Measurement Heart [id number] <Conclusion> Electronic ventricular pacemaker
[2017-07-26] MEDS ORDERED: Digoxin 250 mcg (0.25 mg) Tab PO SCH (10:00)
[2017-07-26] MEDS: DOBUTamine 500mg/250ml D5W 500 MG/250 ML BAG IV PRN (10:21)
[2017-07-26 10:25] VITALS: PULSE 71
[2017-07-26 11:58] VITALS: BP 114/77; PULSE 102; TEMP 98.1
--- NOTE | 2017-07-26 13:42 | PN ---
DATE: 07/26/2017 CARDIOLOGY FOLLOWUP SUBJECTIVE: The patient is off IV dobutamine this morning. I walked with her. She was able to walk one lap around the nurse's station. PHYSICAL EXAMINATION: VITAL SIGNS: Blood pressure is 114/77, heart rate is 100. NECK: Negative JVD. LUNGS: Without rales. HEART: With S1, S2. EXTREMITIES: Without edema. LABORATORY DATA: Laboratories were not drawn today. IMPRESSION: 1. Severe dilated cardiomyopathy. 2. Status post transcatheter aortic valve replacement. 3. History of aortic insufficiency. 4. Marked dyspnea, which is improved after 24 hours of IV dobutamine. PLAN: Given these findings, the patient can be discharged today on p.o. digoxin. We will withhold any BRIDGETTE inhibitor given her propensity for hypotension and dizziness. I have given the patient instructions to see me in the office next week. Shakir Aguilar MD
--- NOTE | 2017-07-27 06:29 | DS ---
HISTORY OF PRESENT ILLNESS: The patient is a 51-year-old,seen and examined, sitting in chair, seems to be comfortable. She states she has less shortness of breath, was able to walk somewhat, has been on dobutamine drip. PHYSICAL EXAMINATION VITAL SIGNS: She is afebrile. Pulse 102, respirations 20, blood pressure 114/77. LUNGS: Bilateral fair airflow. No rhonchi or crackle. HEART: S1, S2 audible. ABDOMEN: Soft, nontender. No rebound, no guarding. NEUROLOGIC: The patient is awake and alert, able to communicate, ambulatory. LABORATORY DATA: Chemistry: Sodium 144, potassium 4.9, chloride 104, CO2 29, BUN 27, creatinine 0.9, blood sugar of 74. ASSESSMENT 1. Dilated cardiomyopathy. 2. Exertional dyspnea. 3. History of lymphoma. 4. History of hepatitis C, status post treatment. 5. Congestive heart failure with dilated cardiomyopathy, systolic dysfunction. 6. Status post transcatheter aortic valve replacement. 7. Status post pacemaker placement. PLAN: The patient will be discharged home today as per Dr. Aguilar's recommendation and we will discharge her on digoxin. Kelly Aguilar MD
== END 2017-07-26 16:09 | disposition home or self-care (01) ==
LOC: ED 06:44 → ERH 09:59 → 3RSO 14:34
PROVIDERS: ADMIT Internal Medicine; ATTEND Internal Medicine
DX: I42.0 Dilated cardiomyopathy (principal); I50.21 Acute systolic (congestive) heart failure; I95.9 Hypotension, unspecified; I25.10 Atherosclerotic heart disease of native coronary artery without angina pectoris; B19.20 Unspecified viral hepatitis C without hepatic coma; Z94.81 Bone marrow transplant status; Z85.71 Personal history of Hodgkin lymphoma; Z92.21 Personal history of antineoplastic chemotherapy; Z95.0 Presence of cardiac pacemaker; Z95.2 Presence of prosthetic heart valve; Z82.49 Family history of ischemic heart disease and other diseases of the circulatory system
CPT/HCPCS: 71045; 71275; 80048; 82550; 82803; 83615; 83880; 84484; 85025; 85378; 85610; 85730; 87040; 93005; 96361; 96374; 96376; 99285; G0378; J1250; J7040; Q9967

== ENCOUNTER 2018-07-06 19:14 | Inpatient (IN) | payer BC, OTHER ==
[2018-07-06 19:21] VITALS: BMI 25.1
--- NOTE | 2018-07-06 19:51 | ED PDOC ---
Arrival/HPI - General Chief Complaint: Chest Pain Time Seen by Provider: 07/06/18 19:41 Historian: Patient - History of Present Illness Narrative History of Present Illness (Text): 07/06/18 19:53 A 52 year old female, whose past medical history includes Hodgkins' lymphoma, aortic stenosis with valve replacement (May 2016), and pacemaker (May 2016), presents to the emergency department complaining of intermittent chest discomfor t associated with shortness of breath for few days. Patient denies any fever, chills, cough, bilateral leg pain, or any other complaints at this time. PMD: Dr. Aguilar Past Medical History - Provider Review Nursing Documentation Reviewed: Yes - Infectious Disease Hx of Infectious Diseases: None - Tetanus Immunization Tetanus Immunization: Unknown - Reproductive Currently : No - Cardiac Hx Pacemaker: Yes - Pulmonary Hx Respiratory Disorders: Yes Hx Pneumonia: Yes (09-16-14) - Neurological Hx Neurological Disorder: No - HEENT Hx HEENT Disorder: (WEARS RX GLASSES FOR READING) - Renal Hx Renal Disorder: No - Endocrine/Metabolic Hx Endocrine Disorders: No - Hematological/Oncological Hx Blood Disorders: Yes Hx Anemia: Yes (blood transfusion) Hx Cancer: Yes (hodgkin's lymphoma reoccurring for 24 yrs dx 1988) Hx Chemotherapy: Yes (chemo and radiation last given 03/2012) Hx Hepatitis C: Yes Other/Comment: hodgkins lymphoma has recurred 4 times since being dx in 1988 - Integumentary Hx Dermatological Disorder: No - Musculoskeletal/Rheumatological Hx Falls: No - Gastrointestinal Hx Gastrointestinal Disorders: Yes (constipation) Hx Constipation: Yes - Genitourinary/Gynecological Hx Genitourinary Disorders: No - Psychiatric Hx Emotional Abuse: No Hx Physical Abuse: No Hx Substance Use: No - Past Surgical History Past Surgical History: Non-Contributing - Surgical History Hx Cardiac Catheterization: Yes (TAVR) - Anesthesia Hx Anesthesia: Yes Hx Anesthesia Reactions: No Hx Malignant Hyperthermia: No - Suicidal Assessment Feels Threatened In Home Enviroment: No Family/Social History - Physician Review Nursing Documentation Reviewed: Yes Family/Social History: No Known Family HX Smoking Status: Current Some Days Smoker Hx Alcohol Use: Yes (social drinker) Hx Substance Use: No Allergies/Home Meds Allergies/Adverse Reactions: Allergies sulfamethoxazole [From Bactrim] Allergy (Severe, Verified 02/22/17 13:33) RASH trimethoprim [From Bactrim] Allergy (Severe, Verified 02/22/17 13:33) RASH Home Medications: Home Meds Medication Instructions Recorded Confirmed RX: Aspirin [Ecotrin] 81 mg PO DAILY 02/22/17 07/06/18 Famciclovir [Famvir] 500 mg PO DAILY 07/06/18 07/06/18 RX: Digoxin [Digitek] 0.125 mg PO DAILY 07/06/18 07/06/18 Review of Systems - Physician Review All systems were reviewed & negative as marked: Yes - Review of Systems Constitutional: absent: Fevers, Night Sweats Respiratory: SOB. absent: Cough Cardiovascular: Other (chest discomfort intermittently) Musculoskeletal: absent: Other (no bilateral leg pain) Physical Exam Vital Signs Reviewed: Yes Vital Signs Temp Resp BP Pulse Ox 07/06/18 19:17 97.9 F 20 166/90 H 99 Temperature: Afebrile Blood Pressure: Hypertensive Respiratory Rate: Normal Appearance: Positive for: Well-Appearing, Non-Toxic, Comfortable Pain Distress: None Mental Status: Positive for: Alert and Oriented X 3 - Systems Exam Head: Present: Atraumatic, Normocephalic Pupils: Present: PERRL Extroacular Muscles: Present: EOMI Conjunctiva: Present: Normal Mouth: Present: Moist Mucous Membranes Neck: Present: Normal Range of Motion Respiratory/Chest: Present: Other (crackles at basis of lung rooney) Cardiovascular: Present: Regular Rate and Rhythm, Normal S1, S2. No: Murmurs Abdomen: No: Tenderness, Distention, Peritoneal Signs Back: Present: Normal Inspection Upper Extremity: Present: Normal Inspection. No: Cyanosis, Edema Lower Extremity: Present: Normal Inspection. No: Edema Neurological: Present: GCS=15, CN II-XII Intact, Speech Normal Skin: Present: Warm, Dry, Normal Color. No: Rashes Psychiatric: Present: Alert, Oriented x 3, Normal Insight, Normal Concentration Medical Decision Making ED Course and Treatment: 07/06/18 19:54 Impression: 52 year old female with intermittent chest discomfort associated with shortness of breath. Plan: -- EKG -- Chest X-ray -- Labs -- Reassess and disposition Prior Visits: Notes and results from previous visits were reviewed. Patient was last seen here on 07/25/2017 for intermittent shortness of breath. Patient was admitted. Progress Notes: Reviewed EKG, paced rhythm at 113 bpm. 07/06/18 21:35 Reviewed Chest X-ray, shows minimally increased pulmonary vascular markings. 07/06/18 21:[address] Aguilar, who requests pt go to hospitalist service. 07/06/18 21:54 Case discussed with medical sales associate national accounts recruiter, who is aware and agrees with plan. 07/06/18 21:[address] Scruggs, who is aware and agrees with plan. Accepts pt in to hospitalist service. Pt will go to Telemetry observation for CHF and chest pain. 07/06/18 21:[address] Campos, pt's oncologist. - Lab Interpretations I have reviewed the lab results: Yes - RAD Interpretation It Support Manager: ED Physician - EKG Interpretation Interpreted by ED Physician: Yes Type: 12 lead EKG - Scribe Statement The provider has reviewed the documentation as recorded by the Brittanyibroberto Deluca Provider Scribe Attestation: All medical record entries made by the Brittanyibroberto were at my direction and personally dictated by me. I have reviewed the chart and agree that the record accurately reflects my personal performance of the history, physical exam, medical decision making, and the department course for this patient. I have also personally directed, reviewed, and agree with the discharge instructions and disposition. Disposition/Present on Arrival - Present on Arrival Any Indicators Present on Arrival: No History of DVT/PE: No History of Uncontrolled Diabetes: No Urinary Catheter: No History of Decub. Ulcer: No History Surgical Site Infection Following: None - Disposition Have Diagnosis and Disposition been Completed?: Yes Diagnosis: CHF (congestive heart failure) Disposition: HOSPITALIZED Disposition Time: 22:03 Patient Plan: Observation Patient Problems: Current Active Problems Problem Status Onset CHF (congestive heart failure) Acute Condition: STABLE
[2018-07-06 20:31] LABS: HEMOGLOBIN 14.2 g/dL (12.0-16.0); MEAN CELL VOLUME 89.7 fl (80.0-105.0); MEAN CORPUSCULAR HEMOGLOBIN 29.2 pg (25.0-35.0); MEAN CORPUSCULAR HGB CONC 32.6 g/dl (31.0-37.0); MEAN PLATELET VOLUME 9.7 fl (7.0-11.0); RBC 4.86 10^6/uL (3.5-6.1); RED CELL DISTRIBUTION WIDTH 14.1 % (11.5-14.5); WHITE BLOOD COUNT 6.9 10^3/uL (4.5-11.0)
[2018-07-06 20:35] LABS: INR 0.97; PARTIAL THROMBOPLASTIN TIME 65.4 Seconds (26.9-38.3); PROTHROMBIN TIME 10.8 SECONDS (9.4-12.5)
[2018-07-06 20:45] LABS: ALB/GLOB RATIO 1.2 (1.1-1.8); ALBUMIN 3.9 g/dL (3.0-4.8); BLOOD UREA NITROGEN 23 mg/dL (7-21); GFR NON-AFRICAN AMERICAN > 60
[2018-07-06 20:54] LABS: ALT/SGPT 31 U/L (7-56); AST/SGOT 65 U/L (14-36)
[2018-07-06 20:57] LABS: TROPONIN I 0.08 ng/mL
--- NOTE | 2018-07-06 22:11 | CP.PCM.HP ---
<Daisy Patel - Last Filed: 07/07/18 01:59> History of Present Illness - History of Present Illness History of Present Illness: Resident History & Physical for Hospitalist Service Patient is a 52 year old female with past medical history of systolic CHF with dilated cardiomyopathy, CAD, pulmonary hypertension, aortic stenosis, Hodgkin's lymphoma s/p chemo, bone marrow and stem cell transplant, hepatitis C presenting with intermittent shortness of breath worsening over the past week. She states that she is unable to walk up a flight of stairs without becoming short of breath and this is a change from her baseline. Patient typically sleeps on two pillows at night. Patient also admits to pain located in her anterior chest wall which began this morning, characterized as a stabbing sensation that occurs at rest for approximately thirty minutes. Denies fevers, chills, nausea, vomiting, abdominal pain, diarrhea, constipation. PMH: systolic CHF with dilated cardiomyopathy, CAD, pulmonary hypertension, aortic stenosis, lymphoma s/p chemo and bone marrow transplant, hepatitis C PSH: TAVR, pacemaker (2018) SHx: social alcohol, smokes occasional cigarette, denies illicit drug use FHx: denies Allergies: sulfamethoxazole, trimethoprim PMD: Dr. Aguilar Pharmacy: [facility] Present on Admission - Present on Admission Any Indicators Present on Admission: No Review of Systems - Review of Systems All systems: reviewed and no additional remarkable complaints except (as stated in HPI) Past Patient History - Infectious Disease Hx of Infectious Diseases: None - Tetanus Immunizations Tetanus Immunization: Unknown - Past Social History Smoking Status: Current Some Days Smoker - CARDIAC Hx Pacemaker: Yes - PULMONARY Hx Respiratory Disorders: Yes Hx Pneumonia: Yes (09-16-14) - NEUROLOGICAL Hx Neurological Disorder: No - HEENT Hx HEENT Problems: (WEARS RX GLASSES FOR READING) - RENAL Hx Chronic Kidney Disease: No - ENDOCRINE/METABOLIC Hx Endocrine Disorders: No - HEMATOLOGICAL/ONCOLOGICAL Hx Blood Disorders: Yes Hx Anemia: Yes (blood transfusion) Hx Cancer: Yes (hodgkin's lymphoma reoccurring for 24 yrs dx 1988) Hx Chemotherapy: Yes (chemo and radiation last given 03/2012) Hx Hepatitis C: Yes Other/Comment: hodgkins lymphoma has recurred 4 times since being dx in 1988 - INTEGUMENTARY Hx Dermatological Problems: No - MUSCULOSKELETAL/RHEUMATOLOGICAL Hx Falls: No - GASTROINTESTINAL Hx Gastrointestinal Disorders: Yes (constipation) Hx Constipation: Yes - GENITOURINARY/GYNECOLOGICAL Hx Genitourinary Disorders: No - PSYCHIATRIC Hx Emotional Abuse: No Hx Physical Abuse: No Hx Substance Use: No - SURGICAL HISTORY Hx Cardiac Catheterization: Yes (TAVR) - ANESTHESIA Hx Anesthesia: Yes Hx Anesthesia Reactions: No Hx Malignant Hyperthermia: No Meds Allergies/Adverse Reactions: Allergies Allergy/AdvReac Type Severity Reaction Status Date / Time sulfamethoxazole Allergy Severe RASH Verified 02/22/17 13:33 [From Bactrim] trimethoprim [From Bactrim] Allergy Severe RASH Verified 02/22/17 13:33 Physical Exam - Constitutional Appears: Non-toxic, No Acute Distress - Head Exam Head Exam: ATRAUMATIC, NORMOCEPHALIC - Eye Exam Eye Exam: EOMI, Normal appearance, PERRL - ENT Exam ENT Exam: Mucous Membranes Moist - Neck Exam Neck exam: Positive for: Normal Inspection. Negative for: Lymphadenopathy, Thyromegaly - Respiratory Exam Respiratory Exam: NORMAL BREATHING PATTERN. absent: Accessory Muscle Use, Rales, Rhonchi, Wheezes, Respiratory Distress - Cardiovascular Exam Cardiovascular Exam: REGULAR RHYTHM, +S1, +S2 - GI/Abdominal Exam GI & Abdominal Exam: Soft. absent: Distended, Firm, Guarding, Rebound, Tenderness - Extremities Exam Extremities exam: Positive for: normal capillary refill, pedal edema (mild nonpi tting) - Neurological Exam Neurological exam: Alert, CN II-XII Intact, Oriented x3 - Psychiatric Exam Psychiatric exam: Normal Affect, Normal Mood - Skin Skin Exam: Dry, Intact, Normal Color, Warm Results - Vital Signs Recent Vital Signs: Last Vital Signs Temp 97.9 F 07/06/18 19: Pulse 104 H 07/06/18 20:01 Resp 18 07/06/18 20:01 BP 112/72 07/06/18 20:01 Pulse Ox 93 L 07/06/18 20:01 - Labs Result Diagrams: 07/06/18 19:30 07/06/18 19:30 Labs: Laboratory Results - last 24 hr 07/06/18 07/06/18 07/06/18 19:30 19:30 19:30 WBC 6.9 RBC 4.86 Hgb 14.2 Hct 43.6 MCV 89.7 MCH 29.2 MCHC 32.6 RDW 14.1 Plt Count 164 MPV 9.7 PT 10.8 INR 0.97 APTT 65.4 H Sodium 138 Potassium 3.9 Chloride 105 Carbon Dioxide 24 Anion Gap 12 BUN 23 H Creatinine 0.8 Est GFR ( Amer) > 60 Est GFR (Non-Af Amer) > 60 Random Glucose 97 Calcium 9.0 Total Bilirubin 0.6 AST 65 H D ALT 31 Alkaline Phosphatase 103 Lactate Dehydrogenase 788 H Total Creatine Kinase 125 Troponin I 0.08 D NT-Pro-B Natriuret Pep Total Protein 7.2 Albumin 3.9 Globulin 3.3 Albumin/Globulin Ratio 1.2 07/06/18 20:30 WBC RBC Hgb Hct MCV MCH MCHC RDW Plt Count MPV PT INR APTT Sodium Potassium Chloride Carbon Dioxide Anion Gap BUN Creatinine Est GFR ( Amer) Est GFR (Non-Af Amer) Random Glucose Calcium Total Bilirubin AST ALT Alkaline Phosphatase Lactate Dehydrogenase Total Creatine Kinase Troponin I NT-Pro-B Natriuret Pep 2060 H Total Protein Albumin Globulin Albumin/Globulin Ratio Assessment & Plan - Assessment and Plan (Free Text) Assessment: Patient is a 52 year old female with past medical history of systolic CHF with d ilated cardiomyopathy, CAD, pulmonary hypertension, aortic stenosis, Hodgkin's lymphoma s/p chemo, bone marrow and stem cell transplant, hepatitis C presenting with intermittent shortness of breath and anterior chest wall pain. Plan: Shortness of breath - CHF exacerbation vs. PE - elevated BNP, D-Dimer - CXR shows cephalization - ECHO from 12/2017 showed EF 17%, mild pulmonary hypertension - Strict Is and Os, daily weights, fluid restriction - Xopenex PRN - Aspirin 81 mg PO daily - Lovenox 70 mg SC Q12H - continue home Digoxin .125 mg PO daily - Cardiology consulted. Appreciate recs. - patient refused CT angio - followup ECHO and V/Q scan Atypical chest pain - EKG shows paced rhythm, tachycardia - troponin .08 - troponins Q6H - TSH, lipid panel History of Hodgkin's lymphoma - remission since 2011 - Heme/onc consulted. Appreciate recs. PPX - Lovenox Case discussed with attending Dr. Sheba Patel PGY-1 - Date & Time Date: 07/06/18 Time: 22:04 <Shelley Scruggs - Last Filed: 07/07/18 06:41> Results - Vital Signs Recent Vital Signs: Last Vital Signs Temp 97.7 F 07/07/18 06:00 Pulse 96 H 07/07/18 06:00 Resp 20 07/07/18 06:00 BP 111/71 07/07/18 06:00 Pulse Ox 93 L 07/07/18 06:00 - Labs Result Diagrams: 07/07/18 06:00 07/06/18 19:30 Labs: Laboratory Results - last 24 hr 07/06/18 07/06/18 07/06/18 19:30 19:30 19:30 WBC 6.9 RBC 4.86 Hgb 14.2 Hct 43.6 MCV 89.7 MCH 29.2 MCHC 32.6 RDW 14.1 Plt Count 164 MPV 9.7 Neut % (Auto) Lymph % (Auto) Andrew % (Auto) Eos % (Auto) Baso % (Auto) Lymph # (Auto) Andrew # (Auto) Eos # (Auto) Baso # (Auto) Absolute Neuts (auto) PT 10.8 INR 0.97 APTT 65.4 H D-Dimer, Quantitative Sodium 138 Potassium 3.9 Chloride 105 Carbon Dioxide 24 Anion Gap 12 BUN 23 H Creatinine 0.8 Est GFR ( Amer) > 60 Est GFR (Non-Af Amer) > 60 Random Glucose 97 Calcium 9.0 Total Bilirubin 0.6 AST 65 H D ALT 31 Alkaline Phosphatase 103 Lactate Dehydrogenase 788 H Total Creatine Kinase 125 Troponin I 0.08 D NT-Pro-B Natriuret Pep Total Protein 7.2 Albumin 3.9 Globulin 3.3 Albumin/Globulin Ratio 1.2 07/06/18 07/06/18 07/06/18 19:30 20:30 20:30 WBC RBC Hgb Hct MCV MCH MCHC RDW Plt Count MPV Neut % (Auto) Lymph % (Auto) Andrew % (Auto) Eos % (Auto) Baso % (Auto) Lymph # (Auto) Andrew # (Auto) Eos # (Auto) Baso # (Auto) Absolute Neuts (auto) PT INR APTT D-Dimer, Quantitative 3517 H Sodium Potassium Chloride Carbon Dioxide Anion Gap BUN Creatinine Est GFR ( Amer) Est GFR (Non-Af Amer) Random Glucose Calcium Total Bilirubin AST ALT Alkaline Phosphatase Lactate Dehydrogenase Total Creatine Kinase Troponin I 0.08 NT-Pro-B Natriuret Pep 2060 H Total Protein Albumin Globulin Albumin/Globulin Ratio 07/07/18 06:00 WBC 5.0 D RBC 4.91 Hgb 14.2 Hct 43.9 MCV 89.4 MCH 28.9 MCHC 32.3 RDW 14.1 Plt Count 168 MPV 9.9 Neut % (Auto) 58.6 Lymph % (Auto) 36.0 H Andrew % (Auto) 5.0 Eos % (Auto) 0.2 L Baso % (Auto) 0.2 Lymph # (Auto) 1.8 Andrew # (Auto) 0.3 Eos # (Auto) 0.0 Baso # (Auto) 0.01 Absolute Neuts (auto) 2.95 PT INR APTT D-Dimer, Quantitative Sodium Potassium Chloride Carbon Dioxide Anion Gap BUN Creatinine Est GFR ( Amer) Est GFR (Non-Af Amer) Random Glucose Calcium Total Bilirubin AST ALT Alkaline Phosphatase Lactate Dehydrogenase Total Creatine Kinase Troponin I NT-Pro-B Natriuret Pep Total Protein Albumin Globulin Albumin/Globulin Ratio Attending/Attestation - Attestation I have personally seen and examined this patient.: Yes I have fully participated in the care of the patient.: Yes I have reviewed all pertinent clinical information: Yes
[2018-07-06] MEDS ORDERED: Levalbuterol 0.63 MG/3 ML Inhal Soln UD IH PRN (23:09)
[2018-07-07] MEDS ORDERED: Enoxaparin 80 mg Syringe SC STA (00:13)
[2018-07-07 06:16] VITALS: O2SAT 93
[2018-07-07 06:35] LABS: BASO # 0.01 K/mm3 (0.0-2.0); BASO % 0.2 % (0.0-3.0); EOS % 0.2 % (1.5-5.0); HEMOGLOBIN 14.2 g/dL (12.0-16.0); LYMPH # 1.8 (1.2-3.4); MEAN CELL VOLUME 89.4 fl (80.0-105.0); MEAN CORPUSCULAR HEMOGLOBIN 28.9 pg (25.0-35.0); MEAN CORPUSCULAR HGB CONC 32.3 g/dl (31.0-37.0); MEAN PLATELET VOLUME 9.9 fl (7.0-11.0); MONO # 0.3 (0.1-0.6); RBC 4.91 10^6/uL (3.5-6.1); RED CELL DISTRIBUTION WIDTH 14.1 % (11.5-14.5)
[2018-07-07 07:03] LABS: TROPONIN I 0.05 ng/mL
[2018-07-07 07:21] LABS: ALB/GLOB RATIO 1.2 (1.1-1.8); ALBUMIN 3.9 g/dL (3.0-4.8); ALT/SGPT 26 U/L (7-56); AST/SGOT 47 U/L (14-36); BLOOD UREA NITROGEN 22 mg/dL (7-21); CALCIUM 8.4 mg/dL (8.4-10.5); GFR NON-AFRICAN AMERICAN > 60; HDL CHOLESTEROL 57 mg/dL (29-60)
[2018-07-07 07:27] LABS: LDL CHOLESTEROL 153 mg/dL (0-129)
--- NOTE | 2018-07-07 07:49 | CP.PCM.PN ---
<Matt Galan - Last Filed: 07/07/18 15:18> Subjective - Date & Time of Evaluation Date of Evaluation: 07/07/18 Time of Evaluation: 07:49 - Subjective Subjective: Matt Galan DO, PGY-1 Hospitalist Progress Note for Dr. Yan Ramírez Patient was seen and examined at bedside this AM. She reports feeling much less short of breath this morning and has been able to ambulate to bathroom without difficulty. She denies fever/chills, CP, cough, noisy or labored breathing, nausea/vomiting, or urinary complaints. Objective - Vital Signs/Intake and Output Vital Signs (last 24 hours): Temp Pulse Resp BP Pulse Ox 97.7 F 96 H 20 111/71 93 L 07/07/18 06:00 07/07/18 06:00 07/07/18 06:00 07/07/18 06:00 07/07/18 06:00 Intake and Output: 07/07/18 07/07/18 06:59 18:59 Intake Total 120 Balance 120 - Medications Medications: Current Medications Aspirin (Ecotrin) 81 mg PO DAILY KARAN Digoxin (Digoxin) 0.125 mg PO 1400 KARAN Enoxaparin Sodium (Lovenox) 70 mg SC Q12H KARAN; Protocol Furosemide (Lasix) 20 mg IVP DAILY KARAN Levalbuterol HCl (Xopenex) 0.63 mg IH [id number] PRN PRN Reason: Shortness of Breath - Labs Labs: 07/07/18 06:00 07/07/18 06:00 PT 10.8 SECONDS (9.4-12.5) 07/06/18 19:30 INR 0.97 07/06/18 19:30 APTT 65.4 Seconds (26.9-38.3) H 07/06/18 19:30 - Constitutional Appears: Non-toxic, No Acute Distress - Head Exam Head Exam: ATRAUMATIC, NORMOCEPHALIC - Eye Exam Eye Exam: EOMI, PERRL Pupil Exam: PERRL - ENT Exam ENT Exam: Mucous Membranes Moist - Neck Exam Neck Exam: Full ROM, Normal Inspection - Respiratory Exam Respiratory Exam: Rales (faint bibasilar rales b/l), Rhonchi. absent: Accessory Muscle Use, Wheezes, Respiratory Distress - Cardiovascular Exam Cardiovascular Exam: REGULAR RHYTHM, RRR, +S1, +S2. absent: Gallop, Rubs, Murmur - GI/Abdominal Exam GI & Abdominal Exam: Soft, Normal Bowel Sounds. absent: Guarding, Tenderness - Extremities Exam Extremities Exam: Full ROM, Pedal Edema (trace non-pitting edema b/l). absent: Calf Tenderness - Back Exam Back Exam: Full ROM, NORMAL INSPECTION - Neurological Exam Neurological Exam: Alert, Awake, Normal Gait, Oriented x3 - Psychiatric Exam Psychiatric exam: Normal Affect, Normal Mood - Skin Skin Exam: Dry, Intact, Warm Assessment and Plan - Assessment and Plan (Free Text) Assessment: 52 yo F with PMH of HFrEF (last Echo EF of 17%, s/p PPM placement), CAD, pulmonary hypertension, , lymphoma s/p chemo and bone marrow transplant, and Hep C is admitted for concern of worsening SOB. Plan: Shortness of Breath Most likely 2/2 acute on chronic exacerbation of CHF VQ scan completed, low probability of PE TTE completed in 12/2017 shows severely depressed EF of 17% F/u repeat TTE Per patient, she follows with purchasing administrative assistant regularly and was initially taking ASA and coreg ASA was stopped due to bruising Coreg was stopped due to hypotension and bradycardia She has been taking digoxin only Continue Lasix 20 mg IVP daily Continue strict I & O, daily weight Continue xopenex PRN for SOB Hx CAD and s/p TAVR and PPM placement Repeat TTE ordered, f/u results Patient was only taking digoxin but has had difficulty obtaining medications due to insurance issues Patient states she has insurance again and will be able to f/u with Dr. Aguilar on an outpatient basis Digoxin level < 0.4 HLD Total cholesterol and LDL elevated Consider starting lipitor 40 mg, will discuss plan with cardiology Hx Pulmonary HTN Likely 2/2 cor pulmonale from HFrEF Repeat TTE ordered, f/u results Hx Hodgkin's lymphoma In remission Hx Hep C Was treated 3 years ago Patient was informed it had resolved at that point DVT/GI PPX: lovenox/protonix Full Code HHD Monitor on telemetry Patient seen, examined, and plan discussed with my attending Dr. Yan Galan D.O. IM Resident PGY-1 Pager: [phone] <Skylar Ramírez - Last Filed: 07/07/18 16:37> Objective - Vital Signs/Intake and Output Vital Signs (last 24 hours): Temp Pulse Resp BP Pulse Ox 97.7 F 103 H 20 118/73 93 L 07/07/18 06:00 07/07/18 14:00 07/07/18 06:00 07/07/18 09:04 07/07/18 06:00 Intake and Output: 07/07/18 07/07/18 06:59 18:59 Intake Total 120 Balance 120 - Medications Medications: Current Medications Digoxin (Digoxin) 0.125 mg PO 1400 KARAN Last Admin: 07/07/18 13:01 Dose: 0.125 mg Enoxaparin Sodium (Lovenox) 40 mg SC DAILY KARAN; Protocol Furosemide (Lasix) 20 mg IVP DAILY KARAN Levalbuterol HCl (Xopenex) 0.63 mg IH [id number] PRN PRN Reason: Shortness of Breath Polyethylene Glycol (Miralax) 17 gm PO DAILY PRN PRN Reason: Constipation - Labs Labs: 07/07/18 06:00 07/07/18 06:00 PT 10.8 SECONDS (9.4-12.5) 07/06/18 19:30 INR 0.97 07/06/18 19:30 APTT 65.4 Seconds (26.9-38.3) H 07/06/18 19:30 Attending/Attestation - Attestation I have personally seen and examined this patient.: Yes I have fully participated in the care of the patient.: Yes I have reviewed all pertinent clinical information, including history, physical exam and plan: Yes Notes (Text): Patient seen and examined by me with resident at 10AM on 07/07/18. Case including HPI, physical exam, and assessment and plan discussed with resident. Agree with above with following additions/corrections. Patient is a 52-year-old female past medical history significant for chronic systolic CHF with dilated cardiomyopathy, coronary artery disease, pulmonary hypertension, aortic stenosis s/p TAVR, Hodgkin's lymphoma status post chemotherapy and bone marrow stem cell transplant, and hepatitis C that presented to the emergency room with shortness of breath. Patient states she is feeling a little better today. States shortness of breath and chest pain have improved. Patient states she is still having some shortness of breath with exertion but it has improved since admission. No abdominal pain. No nausea or vomiting. No fevers or chills. No headaches or dizziness. No dysuria. Physical exam: General: Awake and alert sitting up in bed in no acute distress HEENT: Normocephalic, atraumatic. Extraocular muscles intact, pupils equal and reactive, no scleral icterus. Oropharynx is pink and moist. No pharyngeal erythema or exudate appreciated. Neck is supple. Cardiovascular: Regular rhythm. Normal S1 and S2. Positive systolic murmur. No rubs or gallops appreciated Pulmonary: Normal respiratory effort. Crackles heard at bases. No rhonchi or wheezing appreciated. Gastrointestinal: Soft, nondistended. Nontender. Positive bowel sounds all 4 quadrants. No guarding. Musculoskeletal: Moves all extremities. No calf tenderness. No edema. Central nervous system: AAOx3. Dermatologic: Skin warm and dry. Assessment and plan: Patient is a 52-year-old female past medical history significant for chronic systolic CHF with dilated cardiomyopathy, coronary artery disease, pulmonary hypertension, aortic stenosis s/p TAVR, Hodgkin's lymphoma status post chemotherapy and bone marrow and stem cell transplant, and hepatitis C that presented to the emergency room with shortness of breath. 1. Dyspnea secondary to acute on chronic systolic CHF exacerbation. Dilated cardiomyopathy s/p pacemaker. BNP 2059. 2D echo on 01/03/18 per purchasing administrative assistant showed severely depressed LV function, dilated left atrium, mild mitral regurg and tricuspid regurg, prosthetic aortic valve, mild pulmonary hypertension, permanent pacemaker and RV. Continue IV lasix. Continue digoxin. Pending repeat echo. Cardiology consulted, follow up recommendations. Monitor ins and outs. 2. Elevated D-Dimer. D-Dimer 3517. Patient refused CTA chest. V/Q scan per radiologist showed low probability ventilation perfusion scan for pulmonary embolism. Therapeutic lovenox stopped. 3. Chest pain. Troponins 0.08, 0.08, and 0.05. TSH within normal limits. LDL elevated at 153. Cardiology consulted, follow up recommendations. 4. CAD. Cardiology consulted, follow up recommendations. Per patient, she was on ASA, Coreg, and Lisinopril which was stopped by her physician. Monitor on tele. 5. Hodgkin's Lymphoma. S/P chemo, bone marrow transplant, and stem cell llanos splant. Hem/onc consulted, follow up recommendations. 6. History of Hepatitis C. S/P treatment. No acute issues. 7. DVT prophylaxis. Lovenox 8. Patient is a full code. Case was discussed in detail with the patient regarding current diagnosis and treatment plan. All questions answered.
[2018-07-07] MEDS ORDERED: Enoxaparin 40 mg Syringe SC SCH ×2 (10:00)
[2018-07-07] MEDS ORDERED: POLYETHYLENE GLYCOL 3350 17 GM/Dose PACKET PO SCH (10:30)
--- NOTE | 2018-07-07 10:38 | RAD ---
Date of service: 07/06/2018 HISTORY: Chest pain. COMPARISON: 07/25/2017. FINDINGS: LUNGS: No active pulmonary disease. PLEURA: No significant pleural effusion identified, no pneumothorax apparent. CARDIOVASCULAR: Atherosclerotic calcifications identified primarily aortic arch. Position/ configuration of pacemaker No radiographic findings to suggest acute or significant cardiovascular disease. PICC line in satisfactory position unchanged. OSSEOUS STRUCTURES: No significant abnormalities. VISUALIZED UPPER ABDOMEN: Normal. OTHER FINDINGS: None. IMPRESSION: No active disease. No significant interval change compared to the prior examination(s).
[2018-07-07] MEDS ORDERED: Enoxaparin 80 mg Syringe SC SCH (12:00)
[2018-07-07] MEDS: Digoxin 125 mcg (0.125 mg) Tab PO SCH (13:01)
--- NOTE | 2018-07-07 13:18 | NM ---
Date of service: 07/07/2018 COMPARISON: 2018. Single-view chest. TECHNIQUE: 32.6 mCi technetium 99-m DTPA aerosol. 5.4 mCI technetium 99-m MAA administered intravenously. FINDINGS: VENTILATION COMPONENT: Heterogeneous ventilation. Retention of radionuclide in the tracheobronchial tree and ingestion of radionuclide in the stomach, incidental findings PERFUSION COMPONENT: Heterogeneous distribution of radionuclide. No geographic, segmental, lobar abnormalities apparent on the present examination. IMPRESSION: Low probability ventilation perfusion scan for pulmonary embolism.
[2018-07-07] MEDS ORDERED: POLYETHYLENE GLYCOL 3350 17 GM/Dose PACKET PO PRN (14:50)
--- NOTE | 2018-07-07 17:12 | CARD ---
APPROVED REPORT Date of service: 07/07/2018 EKG Measurement Heart [id number] 152P59 [id number] <Conclusion> Electronic ventricular pacemaker
--- NOTE | 2018-07-07 19:45 | CARD ---
APPROVED REPORT Date of service: 07/06/2018 EKG Measurement Heart [id number] 140P56 [id number] <Conclusion> Atrial sensed ventricular pacemaker
--- NOTE | 2018-07-07 21:19 | CON ---
DATE: 07/07/2018 CARDIOLOGY CONSULTATION REASON FOR CONSULTATION: Chest pain and shortness of breath. HISTORY OF PRESENT ILLNESS: The patient is a 52-year-old female who has a history of Hodgkin's lymphoma, underwent chemotherapy in the past in 2011. 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 The patient also has a history of cardiomyopathy and aortic insufficiency and last year underwent TAVR at [facility] and biventricular pacemaker placement. The patient is not clear about why not an ICD was placed and the patient was never placed on anticoagulation. She presents because of shortness of breath as well as bilateral inframammary steady aching pain. The patient denies any dizziness or syncope. SOCIAL HISTORY: The patient is a nonsmoker. MEDICATIONS: Digoxin 0.125 mg daily, Lasix 20 mg intravenously daily, Lovenox 40 mg subcutaneously daily, and Xopenex inhaler every 6 hours. REVIEW OF SYSTEMS: No fever or chills. No productive cough. No dizziness or syncope. PHYSICAL EXAMINATION: GENERAL: The patient is a middle-aged female who does not appears to be in any distress. VITAL SIGNS: Blood pressure 118/73, heart rate 96, temperature 97.7, and respirations 20. HEENT: Normocephalic. CHEST: Minimal bibasilar rhonchi. HEART: S1 and S2 regular. ABDOMEN: Soft. EXTREMITIES: No edema. No calf tenderness. LABORATORY DATA: SMA-7; today's sodium 139, potassium 3.8, chloride 104, CO2 of 28, glucose 108, BUN 22, and creatinine 0.7. LDL cholesterol 240 and HDL cholesterol 153, both are elevated. ProBNP is 2060. Troponin is 0.08, 0.08, and 0.05. D-dimer was elevated 3517. PTT 65.4. INR was within normal limit. CBC; WBC 5, hemoglobin 14.2, hematocrit 43.9, and platelet count 168,000. Echocardiac study performed in 12/2017 revealed severely depressed left ventricular function, dilated left atrium, mild mitral and tricuspid insufficiency, prosthetic aortic valve, and mild pulmonary hypertension. Cardiac catheterization performed in 02/2017 prior to the TAVR revealed dilated cardiomyopathy, 1+ aortic insufficiency, mild pulmonary hypertension and nonobstructive CAD involving the distal LAD. Chest x-ray revealed no active disease; however, on review is consistent with right lower lobe infiltrate. A ventilation/perfusion scan low probability for pulmonary embolus. EKG revealed an atrial sensed biventricular paced rhythm. ASSESSMENT: 1. Cardiomyopathy, status post biventricular pacemaker placement. 2. Chest pain. Troponin is in the indeterminate range and most recent documented cardiac catheterization in late 2016 did not reveal significant coronary artery disease. 3. Status post transcatheter aortic valve replacement. 4. Hyperlipidemia. RECOMMENDATIONS: Continue digoxin 0.125 mg daily, Lasix 20 mg intravenously daily, Lovenox 40 mg subcutaneously daily, and Xopenex inhaler. I will follow the echocardiac study that was ordered today. The patient was given aspirin on admission and today. Sloan Miller MD
[2018-07-08 01:38] LABS: URINE APPEARANCE CLEAR (CLEAR); URINE BILIRUBIN NEGATIVE (NEGATIVE); URINE BLOOD NEGATIVE (NEGATIVE); URINE COLOR YELLOW (YELLOW); URINE GLUCOSE (UA) NEGATIVE (NEGATIVE); URINE LEUKOCYTE ESTERASE MODERATE Leu/uL (NEGATIVE); URINE PROTEIN NEGATIVE mg/dL (<30 mg/dL); URINE UROBILINOGEN 0.2 E.U./dL (<1 E.U./dL)
[2018-07-08 01:52] LABS: URINE BACTERIA SMALL /hpf; URINE EPITHELIAL CELLS 0 - 2 /hpf (0-5); URINE RBC 0 - 2 /hpf (0-2); URINE WBC 15 - 20 /hpf (0-6)
[2018-07-08 06:43] LABS: BASO # 0.01 K/mm3 (0.0-2.0); BASO % 0.2 % (0.0-3.0); EOS # 0.1 (0.0-0.7); EOS % 2.5 % (1.5-5.0); HEMOGLOBIN 13.9 g/dL (12.0-16.0); LYMPH # 2.9 (1.2-3.4); LYMPH % 55.4 % (22.0-35.0); MEAN CORPUSCULAR HEMOGLOBIN 29.1 pg (25.0-35.0); MEAN CORPUSCULAR HGB CONC 32.3 g/dl (31.0-37.0); MEAN PLATELET VOLUME 9.5 fl (7.0-11.0); MONO # 0.6 (0.1-0.6); MONO % 11.2 % (1.0-6.0); RBC 4.78 10^6/uL (3.5-6.1); RED CELL DISTRIBUTION WIDTH 14.2 % (11.5-14.5); WHITE BLOOD COUNT 5.2 10^3/uL (4.5-11.0)
[2018-07-08 06:57] VITALS: RESP 18
[2018-07-08 06:58] LABS: ALB/GLOB RATIO 1.2 (1.1-1.8); ALBUMIN 3.8 g/dL (3.0-4.8); ALT/SGPT 27 U/L (7-56); AST/SGOT 36 U/L (14-36); BLOOD UREA NITROGEN 20 mg/dL (7-21); GFR NON-AFRICAN AMERICAN > 60
[2018-07-08 07:06] VITALS: PULSE 88; TEMP 97.4
[2018-07-08 09:53] VITALS: BP 106/72
[2018-07-08] MEDS ORDERED: Enoxaparin 40 mg Syringe SC SCH (10:00)
[2018-07-08] MEDS: Digoxin 125 mcg (0.125 mg) Tab PO SCH (13:28)
[2018-07-08 13:29] VITALS: PULSE 95
--- NOTE | 2018-07-08 15:12 | PN ---
DATE: 07/08/2018 CARDIOLOGY FOLLOWUP SUBJECTIVE: The patient's breathing is much improved. PHYSICAL EXAMINATION: VITAL SIGNS: Stable. NECK: Negative JVD. LUNGS: Clear to auscultation. HEART: Reveals a short systolic murmur. EXTREMITIES: Without edema. LABORATORY DATA: BUN and creatinine unremarkable. Potassium is 3.7 and magnesium is 2.1. IMPRESSION: 1. Resolution of congestive heart failure. 2. Dilated cardiomyopathy. 3. History of transcatheter aortic valve replacement. 4. History of dyspnea, resolved. 5. History of biventricular pacemaker placement. Given these findings, the patient's request is we do any further testing as an outpatient. The patient's breathing is back to baseline. I have discussed with the patient about the need for low-salt diet. We will add a small dose of diuretics along with her digoxin. We will repeat her echocardiogram and repeat a stress test given her indeterminate troponins. Shakir Aguilar MD
--- NOTE | 2018-07-08 16:07 | CP.PCM.DIS ---
Provider - Provider Date of Admission: 07/06/18 22:04 Attending physician: Skylar Ramírez DO Primary care physician: Kelly Aguilar MD Consults: 07/06/18 23:09 Cardiology Consult Routine Comment: Consulting Provider: Shakir Aguilar Consulting Physician: Shakir Aguilar Reason for Consult: Hx TAVR, pacemaker, SOB 07/06/18 23:19 Hematology Oncology Consult Routine Comment: Consulting Provider: Alex Campos Consulting Physician: Alex Campos Reason for Consult: h/o Hodgkin's Time Spent in preparation of Discharge (in minutes): 40 Diagnosis - Discharge Diagnosis (1) CHF (congestive heart failure) Status: Chronic (2) Dyspnea Status: Resolved Hospital Course - Lab Results Lab Results: Most Recent Lab Values WBC 5.2 10^3/uL (4.5-11.0) 07/08/18 06:00 RBC 4.78 10^6/uL (3.5-6.1) 07/08/18 06:00 Hgb 13.9 g/dL (12.0-16.0) 07/08/18 06:00 Hct 43.0 % (36.0-48.0) 07/08/18 06:00 MCV 90.0 fl (80.0-105.0) 07/08/18 06:00 MCH 29.1 pg (25.0-35.0) 07/08/18 06:00 MCHC 32.3 g/dl (31.0-37.0) 07/08/18 06:00 RDW 14.2 % (11.5-14.5) 07/08/18 06:00 Plt Count 166 10^3/uL (120.0-450.0) 07/08/18 06:00 MPV 9.5 fl (7.0-11.0) 07/08/18 06:00 Neut % (Auto) 30.7 % (50.0-68.0) L 07/08/18 06:00 Lymph % (Auto) 55.4 % (22.0-35.0) H 07/08/18 06:00 Holt % (Auto) 11.2 % (1.0-6.0) H 07/08/18 06:00 Eos % (Auto) 2.5 % (1.5-5.0) 07/08/18 06:00 Baso % (Auto) 0.2 % (0.0-3.0) 07/08/18 06:00 Lymph # (Auto) 2.9 (1.2-3.4) 07/08/18 06:00 Holt # (Auto) 0.6 (0.1-0.6) 07/08/18 06:00 Eos # (Auto) 0.1 (0.0-0.7) 07/08/18 06:00 Baso # (Auto) 0.01 K/mm3 (0.0-2.0) 07/08/18 06:00 Absolute Neuts (auto) 1.58 (1.4-6.5) 07/08/18 06:00 PT 10.8 SECONDS (9.4-12.5) 07/06/18 19:30 INR 0.97 07/06/18 19:30 APTT 65.4 Seconds (26.9-38.3) H 07/06/18 19:30 D-Dimer, Quantitative 3517 ng/mlDDU (0-243) H 07/06/18 19:30 Sodium 140 mmol/L (132-148) 07/08/18 06:00 Potassium 3.7 mmol/L (3.6-5.0) 07/08/18 06:00 Chloride 103 mmol/L (98-107) 07/08/18 06:00 Carbon Dioxide 32 mmol/L (21-33) 07/08/18 06:00 Anion Gap 9 (10-20) L 07/08/18 06:00 BUN 20 mg/dL (7-21) 07/08/18 06:00 Creatinine 0.8 mg/dl (0.7-1.2) 07/08/18 06:00 Est GFR ( Amer) > 60 07/08/18 06:00 Est GFR (Non-Af Amer) > 60 07/08/18 06:00 Random Glucose 90 mg/dL (70-110) 07/08/18 06:00 Calcium 9.0 mg/dL (8.4-10.5) 07/08/18 06:00 Phosphorus 3.7 mg/dL (2.5-4.5) 07/08/18 06:00 Magnesium 2.1 mg/dL (1.7-2.2) 07/08/18 06:00 Total Bilirubin 0.7 mg/dL (0.2-1.3) 07/08/18 06:00 AST 36 U/L (14-36) D 07/08/18 06:00 ALT 27 U/L (7-56) 07/08/18 06:00 Alkaline Phosphatase 78 U/L (38-126) 07/08/18 06:00 Lactate Dehydrogenase 788 U/L (333-699) H 07/06/18 19:30 Total Creatine Kinase 125 U/L (35-230) 07/06/18 19:30 Troponin I 0.05 ng/mL D 07/07/18 06:00 NT-Pro-B Natriuret Pep 2060 pg/mL (0-450) H 07/06/18 20:30 Total Protein 7.0 g/dL (5.8-8.3) 07/08/18 06:00 Albumin 3.8 g/dL (3.0-4.8) 07/08/18 06:00 Globulin 3.2 gm/dL 07/08/18 06:00 Albumin/Globulin Ratio 1.2 (1.1-1.8) 07/08/18 06:00 Triglycerides 102 mg/dL (35-160) 07/07/18 06:00 Cholesterol 240 mg/dL (130-200) H 07/07/18 06:00 LDL Cholesterol Direct 153 mg/dL (0-129) H 07/07/18 06:00 HDL Cholesterol 57 mg/dL (29-60) 07/07/18 06:00 TSH 3rd Generation 1.21 mIU/mL (0.46-4.68) 07/07/18 06:00 Urine Color Yellow (YELLOW) 07/07/18 23:40 Urine Appearance Clear (CLEAR) 07/07/18 23:40 Urine pH 6.0 (4.7-8.0) 07/07/18 23:40 Ur Specific Wisner 1.015 (1.005-1.035) 07/07/18 23:40 Urine Protein Negative mg/dL (<30 mg/dL) 07/07/18 23:40 Urine Glucose (UA) Negative mg/dL (NEGATIVE) 07/07/18 23:40 Urine Ketones Negative mg/dL (NEGATIVE) 07/07/18 23:40 Urine Blood Negative (NEGATIVE) 07/07/18 23:40 Urine Nitrate Negative (NEGATIVE) 07/07/18 23:40 Urine Bilirubin Negative (NEGATIVE) 07/07/18 23:40 Urine Urobilinogen 0.2 E.U./dL (<1 E.U./dL) 07/07/18 23:40 Ur Leukocyte Esterase Moderate Mark Anthony/uL (NEGATIVE) H 07/07/18 23:40 Urine RBC 0 - 2 /hpf (0-2) 07/07/18 23:40 Urine WBC 15 - 20 /hpf (0-6) H 07/07/18 23:40 Ur Epithelial Cells 0 - 2 /hpf (0-5) 07/07/18 23:40 Urine Bacteria Small /hpf (NONE) 07/07/18 23:40 Digoxin < 0.4 ng/mL (0.8-2.0) L 07/07/18 11:00 - Hospital Course Hospital Course: Matt Galan DO, PGY-1 Hospitalist Discharge Summary for Dr. Yan Ramírez On presentation: Edda is a pleasant 52 year old female with PMH of systolic CHF with EF 17%, dilated cardiomyopathy, CAD, pulmonary hypertension, aortic stenosis(s/p recent TAVR and PPM placement), Hodgkin's lymphoma (s/p chemo, bome marrow and stem cell transplant), and hepatitis C (treated) presented to [facility] ED with intermittent shortness of breath x 1 week. She had been experiencing shortness of breath after walking up a flight of stairs which was abnormal for her. She also complained of anterior wall chest pain that began morning of presentation. She described the chest pain as stabbing located on her right chest which occurred at rest and lasted 30 minutes. She denied fevers, chills, nausea, vomiting, abdominal pain, diarrhea, constipation. Patient takes 0.125 mg of digoxin at home. Patient states she was only taking digoxin at home but had difficulty obtaining medications due to insurance issues which have just recently been resolved. Per patient, she was initally also taking ASA and coreg but both were discontinued due to side effects. Hospital course: Initial CXR in ED showed minimally increased pulmonary vasuclar markings. BNP and D-dimer were both elevated. Patient was admitted for shortness of breath secondary to acute on chronic exacerbation of CHF vs pulmonary embolism. Patient's primary heavy equipment operating engineer, Dr. Aguilar, who she had followed with previously, was consulted. Per cardiology recommendations, patient was started on lasix 20mg IV, lovenox 40mg, and Xopenix inhaler. Home Digoxin 0.125mg was continued. Digoxin level was < 0.4. ASA was given on first and second day of admission but was discontinued after discussion with patient. Elevated D-dimer was worked up with VQ scan, as patient refused CT angiogram. V/Q scan revealed low probablity of PE. Strict I's and O's, daily weights, and fluid restriction were administered. Patient had elevated total cholesterol and LDL which was also discussed with cardiology. Shortness of breath improved during admission and chest pain had resolved. On morning of discharge, patient was resting comfortably. She denied shortness of breath at rest and with ambulation, chest pain, nausea, vomiting, fevers/chills, and urinary complaints. Patient plans to follow up with Dr. Aguilar and Dr. Aguilar outpatient now that she has insurance again. Case was discussed with Dr. Aguilar prior to her discharge, who will follow up with her as an outpatient. Per cardiology, patient was clear for discharge on digoxin and lasix. Patient was instructed to f/u with both Dr. Aguilar and Dr. Aguilar. Discharge plan was discussed in detail with patient. All questions were answered. Patient seen, examined, and discharge plan discussed with my attending Dr. Yan Galan D.O. IM Resident PGY-1 Discharge Exam - Head Exam Head Exam: ATRAUMATIC, NORMOCEPHALIC - Eye Exam Eye Exam: EOMI, PERRL - ENT Exam ENT Exam: Mucous Membranes Moist - Neck Exam Neck exam: Full Rom, Normal Inspection - Respiratory Exam Respiratory Exam: Rhonchi (faint rhonchi loudest at bases). absent: Accessory Muscle Use, Rales, Wheezes, Respiratory Distress - Cardiovascular Exam Cardiovascular Exam: REGULAR RHYTHM, RRR, +S1, +S2. absent: Gallop, Rubs, Systolic Murmur - GI/Abdominal Exam GI & Abdominal Exam: Normal Bowel Sounds, Unremarkable. absent: Soft - Extremities Exam Extremities exam: full ROM, normal inspection - Back Exam Back exam: NORMAL INSPECTION - Neurological Exam Neurological exam: Alert, Oriented x3 - Psychiatric Exam Psychiatric exam: Normal Affect, Normal Mood - Skin Skin Exam: Dry, Intact, Warm Discharge Plan - Discharge Medications Prescriptions: Digoxin 0.125 mg PO DAILY #14 tab Furosemide [Lasix] 20 mg PO DAILY #14 tablet - Follow Up Plan Condition: STABLE Disposition: HOME/ ROUTINE Instructions: Low Salt Diet, Heart Failure (GEN), Pacemaker (DC) Additional Instructions: Please follow up with your primary medical doctor, Dr. Aguilar within 3-[address] Aguilar will check your blood work. Please follow up with your heavy equipment operating engineer, Dr. Aguilar, within 1 week of discharge. We have started you on a new medicine to help you avoid retaining too much water, Lasix 20mg. Please take this everyday and discuss with Dr. Aguilar whether you should continue it. Please continue to take your digoxin as prescribed. Please get any refills needed on any of your medications from your primary care doctor or your heavy equipment operating engineer. If any of your symptoms return or worsen, please return to nearest ED. Referrals: Kelly Aguilar MD [Primary Care Provider] - Shakir Aguilar MD [Staff Provider] -
== END 2018-07-08 15:52 | disposition home or self-care (01) | DRG 292 ==
LOC: ED 19:14 → ERH 22:04 → INTOOBSV 22:04 → OBSVTOIN 22:04 → ERH 22:33 → 2RNO 23:25
PROVIDERS: ADMIT Hospitalist; ATTEND Hospitalist
DX: I50.23 Acute on chronic systolic (congestive) heart failure (principal); I42.0 Dilated cardiomyopathy; Z94.84 Stem cells transplant status; Z94.81 Bone marrow transplant status; I25.10 Atherosclerotic heart disease of native coronary artery without angina pectoris; I08.3 Combined rheumatic disorders of mitral, aortic and tricuspid valves; I27.20 Pulmonary hypertension, unspecified; F17.210 Nicotine dependence, cigarettes, uncomplicated; E78.5 Hyperlipidemia, unspecified; R79.1 Abnormal coagulation profile; Z85.71 Personal history of Hodgkin lymphoma; Z86.19 Personal history of other infectious and parasitic diseases; Z95.0 Presence of cardiac pacemaker; Z95.2 Presence of prosthetic heart valve; Z92.21 Personal history of antineoplastic chemotherapy

== ENCOUNTER 2018-08-11 06:50 | Day surgery (SDC) | payer OTHER ==
[2018-08-11 06:55] VITALS: BMI 26.6
--- NOTE | 2018-08-11 07:13 | ED PDOC ---
Arrival/HPI - General Chief Complaint: Chest Pain Historian: Patient - History of Present Illness Time/Duration: Other (several days) Symptom Onset: Gradual Symptom Course: Worsening Severity Level: Moderate Associated Symptoms (Text): 08/11/18 07:10 Patient complains of a several day history of increasing shortness of breath. Initially she was only having dyspnea on exertion, but now she is also having dyspnea at rest.. She also complains of some chest discomfort. No cough. No fever or chills. No dizziness or lightheadedness. No nausea or vomiting. There is a history of cardiomyopathy and congestive heart failure secondary to chemotherapy for Hodgkin's lymphoma. She had a TAVR in May of last year. Recent echocardiogram shows ejection fraction of approximately 15%. She was recently started on Lasix. Past Medical History - Infectious Disease Hx of Infectious Diseases: None - Tetanus Immunization Tetanus Immunization: Unknown - Cardiac Hx Cardiac Disorders: Yes Hx Pacemaker: Yes - Pulmonary Hx Respiratory Disorders: Yes Hx Pneumonia: Yes - Neurological Hx Neurological Disorder: No - HEENT Hx HEENT Disorder: (WEARS RX GLASSES FOR READING) - Renal Hx Renal Disorder: No - Endocrine/Metabolic Hx Endocrine Disorders: No - Hematological/Oncological Hx Blood Disorders: Yes Hx Anemia: Yes (blood transfusion) Hx Cancer: Yes (hodgkin's lymphoma reoccurring for 24 yrs dx 1988) Hx Chemotherapy: Yes (chemo and radiation last given 03/2012) Hx Hepatitis C: Yes Other/Comment: hodgkins lymphoma has recurred 4 times since being dx in 1988 - Integumentary Hx Dermatological Disorder: No - Musculoskeletal/Rheumatological Hx Falls: No - Gastrointestinal Hx Gastrointestinal Disorders: Yes (constipation) Hx Constipation: Yes - Genitourinary/Gynecological Hx Genitourinary Disorders: No - Psychiatric Hx Emotional Abuse: No Hx Physical Abuse: No Hx Substance Use: No - Past Surgical History Past Surgical History: Non-Contributing - Surgical History Hx Cardiac Catheterization: Yes (TAVR) - Anesthesia Hx Anesthesia: Yes Hx Anesthesia Reactions: No Hx Malignant Hyperthermia: No - Suicidal Assessment Feels Threatened In Home Enviroment: No Family/Social History - Physician Review Nursing Documentation Reviewed: Yes Family/Social History: Unknown Family HX Smoking Status: Current Some Days Smoker Hx Alcohol Use: Yes (social drinker) Frequency of alcohol use: Socially Hx Substance Use: No Allergies/Home Meds Allergies/Adverse Reactions: Allergies sulfamethoxazole [From Bactrim] Allergy (Severe, Verified 08/11/18 06:55) RASH trimethoprim [From Bactrim] Allergy (Severe, Verified 08/11/18 06:55) RASH Home Medications: Home Meds Medication Instructions Recorded Confirmed Famciclovir [Famvir] 500 mg PO DAILY 07/06/18 08/11/18 Review of Systems - Physician Review All systems were reviewed & negative as marked: Yes - Review of Systems Constitutional: Fatigue. absent: Fevers Respiratory: SOB. absent: Cough, Sputum, Wheezing Cardiovascular: Chest Pain. absent: Palpitations Gastrointestinal: absent: Abdominal Pain, Nausea, Vomiting Neurological: absent: Headache, Dizziness Physical Exam Vital Signs Temp Pulse Resp BP Pulse Ox 08/11/18 07:07 97.8 F 130 H 22 108/64 99 Temperature: Afebrile Blood Pressure: Normal Pulse: Other (Heart rate is 90 not 130.) Respiratory Rate: Normal Appearance: Positive for: Well-Appearing, Non-Toxic, Comfortable, Other (Patient is thin cachectic and pale. Chronically ill-appearing.) Pain Distress: None Mental Status: Positive for: Alert and Oriented X 3 - Systems Exam Head: Present: Atraumatic, Normocephalic Pupils: Present: PERRL Extroacular Muscles: Present: EOMI Conjunctiva: Present: Normal Mouth: Present: Moist Mucous Membranes Pharnyx: No: ERYTHEMA, EXUDATE, TONSILS ENLARGED Neck: Present: Normal Range of Motion Respiratory/Chest: Present: Clear to Auscultation, Good Air Exchange, Decreased Breath Sounds. No: Respiratory Distress, Accessory Muscle Use Cardiovascular: Present: Regular Rate and Rhythm, Normal S1, S2. No: Murmurs Abdomen: No: Tenderness, Distention, Peritoneal Signs, Rebound, Guarding Back: Present: Normal Inspection Upper Extremity: Present: Normal Inspection. No: Cyanosis, Edema Lower Extremity: Present: Normal Inspection. No: Edema Neurological: Present: GCS=15, CN II-XII Intact, Speech Normal, Motor Func Grossly Intact Skin: Present: Warm, Dry, Normal Color. No: Rashes Psychiatric: Present: Alert, Oriented x 3, Normal Insight, Normal Concentration Medical Decision Making ED Course and Treatment: 08/11/18 07:13 EKG shows normal sinus rhythm rate approximately 90 with a nonspecific intraventricular conduction delay and no acute ST or T wave changes with poor R wave progressions. 08/11/18 08:29 Chest X-ray: Hyperinflation consistent with underlying COPD. No actute infiltrate 08/11/18 09:00 Elevated troponin and BNP. Dr. Aguilar has the patient already on the catheterization scheduled for this morning. I spoke with him and he requested aspirin and Plavix 600 mg to be given. She will be taken to the lab now. 08/11/18 09:09 Discussed with . - RAD Interpretation Radiology Orders: 08/11/18 07:08 CHEST PORTABLE [RAD] Stat Chest one view shows a pacemaker present. No infiltrate effusion or cardiomegaly. Director Camp: ED Physician Disposition/Present on Arrival - Present on Arrival Any Indicators Present on Arrival: No History of DVT/PE: No History of Uncontrolled Diabetes: No Urinary Catheter: No History of Decub. Ulcer: No History Surgical Site Infection Following: None - Disposition Have Diagnosis and Disposition been Completed?: Yes Diagnosis: NSTEMI (non-ST elevated myocardial infarction), CHF (congestive heart failure) Disposition: HOSPITALIZED Disposition Time: 09:01 Patient Plan: Observation Patient Problems: Current Active Problems Problem Status Onset NSTEMI (non-ST elevated myocardial infarction) Acute CHF (congestive heart failure) Chronic Condition: FAIR
[2018-08-11 08:14] LABS: BASO # 0.02 K/mm3 (0.0-2.0); BASO % 0.4 % (0.0-3.0); EOS # 0.1 (0.0-0.7); EOS % 2.6 % (1.5-5.0); HEMOGLOBIN 14.3 g/dL (12.0-16.0); LYMPH # 2.3 (1.2-3.4); LYMPH % 42.8 % (22.0-35.0); MEAN CELL VOLUME 89.5 fl (80.0-105.0); MEAN CORPUSCULAR HEMOGLOBIN 28.9 pg (25.0-35.0); MEAN CORPUSCULAR HGB CONC 32.4 g/dl (31.0-37.0); MEAN PLATELET VOLUME 9.5 fl (7.0-11.0); MONO # 0.6 (0.1-0.6); MONO % 10.5 % (1.0-6.0); RBC 4.94 10^6/uL (3.5-6.1); RED CELL DISTRIBUTION WIDTH 14.1 % (11.5-14.5); WHITE BLOOD COUNT 5.5 10^3/uL (4.5-11.0)
--- NOTE | 2018-08-11 08:14 | RAD ---
Date of service: 08/11/2018 HISTORY: SOB COMPARISON: No prior. FINDINGS: No change right-sided PICC line with tip in the SVC LUNGS: Lung rooney appear hyperinflated; rule out underlying COPD. PLEURA: No significant pleural effusion identified, no pneumothorax apparent. CARDIOVASCULAR: Minor aortic atherosclerotic calcification present. Heart appears mildly enlarged. No change multi lead pacemaker/defibrillator in situ aortic valve replacement no pulmonary vascular congestion. OSSEOUS STRUCTURES: No significant abnormalities. VISUALIZED UPPER ABDOMEN: Normal. OTHER FINDINGS: None. IMPRESSION: Hyperinflation consistent with underlying COPD. No acute infiltrate.
[2018-08-11 08:25] LABS: INR 0.95; PARTIAL THROMBOPLASTIN TIME 32.6 Seconds (26.9-38.3); PROTHROMBIN TIME 10.7 SECONDS (9.4-12.5)
[2018-08-11 08:28] LABS: ALBUMIN 2.8 g/dL (3.0-4.8); ALT/SGPT 24 U/L (7-56); AST/SGOT 34 U/L (14-36); BLOOD UREA NITROGEN 18 mg/dL (7-21); CALCIUM 7.3 mg/dL (8.4-10.5); GFR NON-AFRICAN AMERICAN > 60
[2018-08-11 08:40] LABS: B-TYPE NATRIURETIC PEPTIDE 1310 pg/mL (0-450); TROPONIN I 0.09 ng/mL
--- NOTE | 2018-08-11 10:38 | CARD ---
APPROVED REPORT Date of service: 08/11/2018 EKG Measurement Heart [id number] AR P71 [id number] <Conclusion> Atrial sense ventricular paced rhythm
[2018-08-11] MEDS ORDERED: Lidocaine PF 2% (5 ml) Inj (For Cardiac Arrhy) ONE (10:55)
[2018-08-11] MEDS ORDERED: Iohexol 350mgl/ml 50 ML ONE (10:55)
[2018-08-11] MEDS ORDERED: Iohexol 350 MG/100 ML VIAL ONE (10:55)
[2018-08-11] MEDS ORDERED: Midazolam 2 MG/2 ML VIAL ONE ×2 (11:18→11:25)
[2018-08-11] MEDS ORDERED: Naloxone 0.4 mg/ml Inj (Adult) ONE (11:35)
[2018-08-11] MEDS ORDERED: Sodium Chloride 0.9% 1,000 ML IV SCH (12:30)
[2018-08-11] MEDS ORDERED: DOBUTamine 500mg/250ml D5W 500 MG/250 ML BAG IV PRN (12:36)
--- NOTE | 2018-08-11 13:30 | HP ---
DATE OF EXAM: 08/11/2018 HISTORY OF PRESENT ILLNESS: The patient is 52 years old known to me from multiple previous admissions, came to the emergency room because of increasing shortness of breath. She states she gets winded with minimal exertion. Denies any cough or congestion. She has some chest discomfort, but no fever noted, no headache. Feels lightheaded and dizzy at times. No fever or chills. She denies any abdominal discomfort, nausea or vomiting. No rectal bleeding. PAST MEDICAL HISTORY 1. The patient does have past medical history significant for cardiomyopathy. 2. History of Hodgkin's lymphoma, got chemotherapy couple of years ago, got exacerbation and also had bone-marrow transplant. 3. The patient has multiple admissions for CHF exacerbation. 4. Her past medical history is also significant for having TAVR in 05/2017. 5. History of hepatitis C. 6. Dilated cardiomyopathy with ejection fraction of 15%. ALLERGIES: SHE IS ALLERGIC TO SULFAMETHOXAZOLE. MEDICATIONS AT HOME: She is on Lasix 20 mg every other day. She is on digoxin 0.125 mg, Famvir 500 mg daily. SOCIAL HISTORY: She used to be a heavy smoker, currently smokes few sticks a day. She is and socially drinks wine here and there. Otherwise, her social history is significant for being . She has one son who has a history of bipolar disorder. PHYSICAL EXAMINATION GENERAL: On examination today, mild shortness of breath. VITAL SIGNS: She is afebrile, pulse 89, respirations 18, blood pressure 94/70. LUNGS: Bilateral fair airflow. No rhonchi or crackles. HEART: S1 and S2 audible. ABDOMEN: Soft and nontender. No rebound. No guarding. NEUROLOGIC: She is awake and alert, able to communicate. Bilateral legs, no edema. LABORATORY DATA: WBC 5.5, hemoglobin 14, hematocrit 44, platelets 126. PT 10.7, INR 0.95. Chemistry: Sodium 143, potassium 3.6, chloride 111, CO2 of 27, BUN 18, creatinine 0.6, blood sugar of 72. BNP 1310. She had troponin 0.09. The patient has cardiac cath done, nonocclusive coronaries. ASSESSMENT 1. Dilated cardiomyopathy. 2. Congestive heart failure. 3. History of hypertension. 4. History of hypotension. PLAN: Currently, the patient is being admitted on telemetry. She will be started on dobutamine ip. She is on digoxin 0.125 mg. She will be given Lasix intermittently. We will followup her electrolytes in a.m. Kelly Aguilar MD
[2018-08-11] MEDS: Digoxin 125 mcg (0.125 mg) Tab PO SCH (13:32)
[2018-08-11] MEDS ORDERED: Influenza Vaccine 60 mcg/0.5 mL SYR (4YR UP) IM ONE (18:28)
[2018-08-11] MEDS ORDERED: Pneumococcal 23-Valent Vaccine IM ONE (18:28)
[2018-08-11] MEDS ORDERED: POLYETHYLENE GLYCOL 3350 17 GM/Dose PACKET PO ONE (20:29)
[2018-08-12 05:44] VITALS: O2SAT 98
[2018-08-12 09:42] LABS: ALB/GLOB RATIO 1.1 (1.1-1.8); ALBUMIN 3.5 g/dL (3.0-4.8); ALT/SGPT 21 U/L (7-56); AST/SGOT 46 U/L (14-36); BLOOD UREA NITROGEN 14 mg/dL (7-21); CALCIUM 9.1 mg/dL (8.4-10.5); GFR NON-AFRICAN AMERICAN > 60
[2018-08-12 12:35] VITALS: BP 106/73; RESP 20; TEMP 97.6
[2018-08-12] MEDS: Digoxin 125 mcg (0.125 mg) Tab PO SCH (13:45)
[2018-08-12 13:47] VITALS: PULSE 95
[2018-08-12 14:23] VITALS: PULSE 101
--- NOTE | 2018-08-12 14:29 | PN ---
DATE: 08/12/2018 CARDIOLOGY FOLLOWUP SUBJECTIVE: The patient is ambulating on the nursing floors without shortness of breath. PHYSICAL EXAMINATION: VITAL SIGNS: Blood pressure 106/73, heart rates in the 90s. NECK: Negative JVD. LUNGS: Without rales. HEART: S1 and S2. EXTREMITIES: Without edema. LABORATORY DATA: Laboratories are unremarkable. IMPRESSION: 1. Resolution of congestive heart failure. 2. End-stage dilated cardiomyopathy. 3. Status post aortic valve replacement with transcatheter aortic valve replacement. 4. Resolution of dyspnea. Given these findings, the patient is doing well. We will DC her dobutamine. She will continue on her home medications. Followup instructions have been given to her in detail. Discharged to home today. hSakir Aguilar MD
--- NOTE | 2018-08-12 23:52 | DS ---
HISTORY OF PRESENT ILLNESS: The patient is a 52-year-old seen and examined, anxious to go home. She was admitted after she was found to have normal stress test. Cardiac cath was done it was found to have nonocclusive coronary artery disease, however, she was found to have low ejection fraction of 20%. She was admitted for 24 hours and was given dobutamine. She seemed to be doing well. PHYSICAL EXAMINATION: GENERAL: Today, she is awake, alert, oriented, communicative. VITAL SIGNS: She is afebrile, pulse 90, respirations 18, and blood pressure 106/73. LUNGS: Bilateral fair airflow. No rhonchi or crackle. HEART: S1 and S2 audible. ABDOMEN: Soft and nontender. No rebound. No guarding. NEUROLOGIC: The patient is awake and alert, able to communicate. LABORATORY DATA: Chemistry: Sodium 141, potassium 4.6, chloride 104, CO2 of 32, BUN 14, creatinine 0.8, blood sugar of 83, AST 46, BNP 1310. Digoxin level is 0.5. ASSESSMENT: 1. Cardiomyopathy. 2. History of lymphoma status post chemotherapy. 3. Hepatitis C that she received her full treatment. 4. Status post transcatheter aortic valve replacement. PLAN: The patient is being discharged home. She is on Lasix 20 mg daily and digoxin 0.125 mg daily. We will follow up the patient in the office. Kelly Aguilar MD
--- NOTE | 2018-08-14 11:30 | CARDCATH ---
PROCEDURE DATE: 08/11/2018 HISTORY: The patient is a 52-year-old woman who presents to the emergency room with increasing shortness of breath. She also has been complaining of intermittent chest pain. Her symptoms have gone to the point where she has shortness of breath at rest. The patient's past medical history includes a history of an end-stage dilated cardiomyopathy with an ejection fraction of approximately 20%. She is referred to the CHF and heart transplant program at [facility] for evaluation for heart transplant. She was referred for TAVR because of her aortic valve. She received a TAVR in May. The patient continues to complain of shortness of breath. SOCIAL HISTORY: The patient does not smoke. PAST MEDICAL HISTORY: Includes Hodgkin's disease which was treated which may be the cause of her cardiomyopathy. Because of her ongoing symptoms as well as angina, an emergency cardiac catheterization was recommended. PROCEDURE: Emergency cardiac catheterization with coronary arteriography, LV gram, supra-aortic valvular injection. Right femoral artery was cannulated with 6-Welsh sheath. There were no complications. I performed moderate sedation which included the presence of an independent trained observer that assisted in monitoring the patient's level of consciousness and physiologic status. After administration of Versed and fentanyl, my intra service time was 30 minutes. The findings on catheterization revealed a left ventricle that was globally dilated and hypokinetic. Estimated ejection fraction is approximately 20%. Supra-aortic valvular injection revealed no aortic insufficiency. Left main artery was unremarkable. The LAD and diagonal vessels revealed diffuse atherosclerosis without critical lesions. The circumflex artery and obtuse marginal branches revealed intimal irregularities without significant stenoses. The RCA revealed a 50% stenosis at its ostium with diffuse atherosclerosis and no critical lesions. The RCA was a dominant vessel. Angio-Seal was used to close the femoral artery site. The patient tolerated the procedure well. In summary, the procedure revealed severely dilated cardiomyopathy with an EF of approximately 20%. No aortic insufficiency from her TAVR valve. There is a 50% ostial stenosis of the RCA. Given these findings, the treatment will be directed at her poor LV function as well as CHF. We give the patient a trial of intravenous dobutamine. Shakir Aguilar MD [facility] # [id number]
== END 2018-08-12 16:21 | disposition home or self-care (01) ==
LOC: ED 06:50 → CATH 09:11 → 2RSO 12:32 → CATH 08-12 16:21
PROVIDERS: ATTEND Internal Medicine Cardiovascular Disease
DX: I21.4 Non-ST elevation (NSTEMI) myocardial infarction (principal); I25.10 Atherosclerotic heart disease of native coronary artery without angina pectoris; I50.9 Heart failure, unspecified; B19.20 Unspecified viral hepatitis C without hepatic coma; I11.0 Hypertensive heart disease with heart failure; I42.0 Dilated cardiomyopathy; K59.00 Constipation, unspecified; Z79.899 Other long term (current) drug therapy; Z85.71 Personal history of Hodgkin lymphoma; Z88.1 Allergy status to other antibiotic agents; Z88.2 Allergy status to sulfonamides; Z95.0 Presence of cardiac pacemaker; Z95.2 Presence of prosthetic heart valve; Z92.21 Personal history of antineoplastic chemotherapy; F17.210 Nicotine dependence, cigarettes, uncomplicated
CPT/HCPCS: 36415; 71045; 80053 ×2; 80162; 82550; 83615; 83735 ×2; 83880; 84484; 85025; 85610; 85730; 93005; 93458; 96374; 99152; 99153; 99285; C1769; C2629; J1250; J1644; J2250; J2310; J3010; Q9967 ×2